=== PATIENT | female | born 1950 | race Caucasian/White ===

== ENCOUNTER 2017-05-22 15:31 | Emergency (ER) | payer MEDICARE, MEDICAID ==
[~2017-05-22] VITALS: Ht 160 cm; Wt 160.0 kg
[~2017-05-22 15:31] MED LIST: ATOR40TA PO; CHRO1TAB7 PO; HYDR-569 PO; LAMO100T65 PO; LEVO137T24 PO; LOSA50TA3 PO; LYSI500T40 PO; MULT-1141 PO; PRAM0.754; PRED20TA PO
[2017-05-22] MEDS ORDERED: ondansetron/PF 4mg/2ml inj IV ONE (16:25)
[2017-05-22] MEDS ORDERED: normal saline 1000ML IV soln IVB ONE (16:25)
[2017-05-22 16:48] LABS: BASOPHILS % (AUTO) 0.2 % (0-1); EOSINOPHILS # (AUTO) 0.3 X10'3 (0-0.9); EOSINOPHILS % (AUTO) 2.6 % (0-6); HEMATOCRIT 41.4 % (35.0-45.0); HEMOGLOBIN 14.6 g/dl (12.0-16.0); LYMPHOCYTES # (AUTO) 1.6 X10'3 (1.1-4.8); LYMPHOCYTES % (AUTO) 14.8 % (21-51); MEAN CORPUSCULAR HEMOGLOBIN 30.9 PG (27.0-31.0); MEAN CORPUSCULAR HGB CONC 35.2 % (33.0-36.5); MEAN CORPUSCULAR VOLUME 87.9 FL (78-98); MEAN PLATELET VOLUME 7.1 FL (7.4-10.4); MONOCYTES # (AUTO) 0.5 X10'3 (0-0.9); MONOCYTES % (AUTO) 4.3 % (2-12); NEUTROPHILS # (AUTO) 8.6 X10'3 (1.8-7.7); NEUTROPHILS % (AUTO) 78.1 % (42-75); PLATELET COUNT 317 X10'3 (140-440); RED BLOOD COUNT 4.71 X10'6 (4.20-5.60); RED CELL DISTRIBUTION WIDTH 13.6 % (11.5-14.5)
[2017-05-22 16:58] LABS: INR 0.9 INR; PARTIAL THROMBOPLASTIN TIME 22 SECONDS (22-32); PROTHROMBIN TIME 9.5 SECONDS (9.0-12.0)
[2017-05-22 17:05] LABS: ALANINE AMINOTRANSFERASE 28 U/L (12-78); ALBUMIN 3.6 G/DL (3.4-5.0); ALBUMIN/GLOBULIN RATIO 0.9 (1.1-1.5); ALKALINE PHOSPHATASE 100 IU/L (46-116); ANION GAP 15 (8-16); ASPARTATE AMINO TRANSFERASE 13 U/L (10-37); BILIRUBIN,TOTAL 0.4 MG/DL (0.1-1.0); BLOOD UREA NITROGEN 16 MG/DL (7-18); BUN/CREATININE RATIO 12.7 (6.6-38.0); CALCIUM 9.4 MG/DL (8.5-10.1); CHLORIDE 96 MMOL/L (99-107); CREATININE 1.26 MG/DL (0.40-0.90); GLUCOSE 238 MG/DL (70-104); POTASSIUM 3.9 MMOL/L (3.5-5.1); SODIUM 135 MMOL/L (135-145); TOTAL CARBON DIOXIDE 24.2 MMOL/L (24-32); TOTAL PROTEIN 7.7 G/DL (6.4-8.2); eGFR 43 ML/MIN
[2017-05-22] MEDS ORDERED: normal saline 1000ml 1,000 ML IV ONE (17:20)
[2017-05-22] MEDS ORDERED: ketorolac trometh. 30mg/ml inj. IV ONE (18:25)
[2017-05-22] MEDS ORDERED: acetaminophen 325mg tablet PO ONE (18:25)
[2017-05-22] MEDS ORDERED: ONDA8TAB9 PO (19:43)
[2017-05-22] MEDS ORDERED: TAM75C PO (19:43)
[2017-05-22] MEDS ORDERED: oseltamivir phos 75mg capsule PO ONE (19:45)
[2017-05-22 20:14] VITALS: BP 136/68
== END 2017-05-22 20:13 | disposition home or self-care (01) ==
LOC: ER 15:31
DX: R11.10 Vomiting, unspecified (principal); J11.1 Influenza due to unidentified influenza virus with other respiratory manifestations; I10 Essential (primary) hypertension; J44.9 Chronic obstructive pulmonary disease, unspecified; E11.9 Type 2 diabetes mellitus without complications; Z88.5 Allergy status to narcotic agent; Z79.899 Other long term (current) drug therapy
CPT/HCPCS: 36415; 71045; 80053; 83605; 84145; 84484; 85025; 85610; 85730; 87040; 93005; 96361; 96374; 96375; 99285; J1885; J2405; J7030

== ENCOUNTER 2019-07-29 06:17 | Day surgery (SDC) | payer MEDICARE, MEDICAID ==
[2019-07-22 13:18] LABS: BASOPHILS # (AUTO) 0.1 X10'3 (0-0.2); BASOPHILS % (AUTO) 0.8 % (0-1); EOSINOPHILS # (AUTO) 0.2 X10'3 (0-0.9); EOSINOPHILS % (AUTO) 2.1 % (0-6); LYMPHOCYTES # (AUTO) 1.4 X10'3 (1.1-4.8); MEAN CORPUSCULAR HEMOGLOBIN 30.7 PG (27.0-31.0); MEAN CORPUSCULAR HGB CONC 34.4 g/dL (33.0-36.5); MEAN CORPUSCULAR VOLUME 89.3 FL (78-98); MONOCYTES # (AUTO) 0.5 X10'3 (0-0.9); MONOCYTES % (AUTO) 6.1 % (2-12); NEUTROPHILS # (AUTO) 5.4 X10'3 (1.8-7.7); PRE OP HEMATOCRIT 36.5 % (35.0-45.0); PRE OP HEMOGLOBIN 12.6 g/dL (12.0-16.0); PRE OP PLATELET COUNT 303 X10'3 (140-440); RED BLOOD COUNT 4.08 X10'6 (4.20-5.60); RED CELL DISTRIBUTION WIDTH 13.3 % (11.5-14.5)
[2019-07-22 13:28] LABS: ALBUMIN 3.4 G/DL (3.4-5.0); ALKALINE PHOSPHATASE 57 IU/L (46-116); BLOOD UREA NITROGEN 24 MG/DL (7-18); BUN/CREATININE RATIO 22.6 (6.6-38.0); CALCIUM 9.1 MG/DL (8.5-10.1); CHLORIDE 102 MMOL/L (99-107); CREATININE 1.06 MG/DL (0.40-0.90); PRE OP ALT 23 U/L (30-65); PRE OP ANION GAP 11 (8-16); PRE OP AST 13 U/L (10-37); PRE OP BILIRUB, TOTAL 0.2 MG/DL (0.0-1.0); PRE OP GLUCOSE 158 MG/DL (70-104); PRE OP POTASSIUM 4.5 MMOL/L (3.4-5.1); PRE OP SODIUM 136 MMOL/L (135-145); TOTAL PROTEIN 6.9 G/DL (6.4-8.2); eGFR 52 ML/MIN
[~2019-07-29] VITALS: Ht 160 cm; Wt 85.3 kg
[~2019-07-29 06:17] MED LIST changes: +ALBU8.5H8 INH; +BUPR150T6 PO; +CARB-126 PO; +CHOL500049 PO; -CHRO1TAB7 PO; +EMPA25TA PO; +FLUT1DIS20 INH; +GLIM4TAB7 PO; +HYDR-4383 PO; -HYDR-569 PO; -LAMO100T65 PO; +LAMO200T10 PO; -LEVO137T24 PO; +LEVO175T2 PO; -LOSA50TA3 PO; +LOSA50TA64 PO; -LYSI500T40 PO; -MULT-1141 PO; +OMEP-50 PO; +ONDA8TAB65 PO; +ONDA8TAB9 PO; +PIOG15TA67 PO; -PRAM0.754; +PRIM250T8 PO; +ROSU40TA22 PO; +SITA1TAB6 PO; +cefazolin/dext.iso 2gm/50ml 50 ML IV ONE; +famotidine 20mg tablet PO ONE; +ringers solution, lacted 1,000 ML IV SCH
[2019-07-29 06:35] VITALS: BP 132/64
[2019-07-29] MEDS ORDERED: BUPIVAcaine/PF 2.5 mg/ml (0.25%) 30ml vial ONE (06:35)
[2019-07-29] MEDS ORDERED: ringers solution, lacted 1,000 ML IV SCH (07:19)
[2019-07-29] MEDS ORDERED: proCHLORperazine 10 MG/2 ml inj IV PRN (07:20)
[2019-07-29] MEDS ORDERED: morphine 4 MG/ML inj SYRINge IV PRN (07:20)
[2019-07-29] MEDS ORDERED: meperidine/PF 25mg/ml syringe IV PRN ×3 (07:20)
[2019-07-29] MEDS ORDERED: morphine 2 MG/ML inj. syringe IV PRN (07:20)
[2019-07-29] MEDS ORDERED: ondansetron/PF 4mg/2ml inj IV PRN (07:20)
[2019-07-29] MEDS ORDERED: LIDOcaine 1% 30ml preserv. free vial ONE (07:23)
[2019-07-29] MEDS ORDERED: fentaNYL/PF 50MCG/1 ML 2ML syringe ONE (09:28)
[2019-07-29] MEDS ORDERED: MIDAZolam 5mg/5ml vial ONE (09:28)
[2019-07-29] MEDS ORDERED: 0.9 % SODIUM CHLORIDE 10 ML VIAL ONE (09:30)
[2019-07-29] MEDS ORDERED: ketorolac trometh. 30mg/ml inj. ONE (09:30)
[2019-07-29 10:09] VITALS: BP 166/74
--- NOTE | 2019-07-29 10:09 | NUR ---
Received from OR via , accompanied by Anesthesiologist DR SANCHEZ and report given by Anesthesiolgist. AWAKE AND ORIENTED. VITALS STABLE. DRESSING DI. MARVIN PAIN.
[2019-07-29 10:19] VITALS: BP 143/59
[2019-07-29 10:29] VITALS: BP 154/66
[2019-07-29 10:39] VITALS: BP 137/58
[2019-07-29 10:49] VITALS: BP 144/62
--- NOTE | 2019-07-29 11:09 | NUR ---
AWAKE AND ORIENTED. VITALS STABLE. DRESSING DI. MARVIN PAIN. HOME WITH A FRIEND AT THIS TIME.
== END 2019-07-29 11:09 | disposition home or self-care (01) ==
LOC: PAS 06:17
PROVIDERS: ATTEND Orthopaedic Surgery Hand Surgery
DX: M65.332 Trigger finger, left middle finger (principal); E78.5 Hyperlipidemia, unspecified; E03.9 Hypothyroidism, unspecified; J44.9 Chronic obstructive pulmonary disease, unspecified; G20 Parkinson's disease; F32.9 Major depressive disorder, single episode, unspecified; E11.22 Type 2 diabetes mellitus with diabetic chronic kidney disease; I12.9 Hypertensive chronic kidney disease with stage 1 through stage 4 chronic kidney disease, or unspecified chronic kidney disease; N18.3 Chronic kidney disease, stage 3 (moderate); K21.9 Gastro-esophageal reflux disease without esophagitis; E66.9 Obesity, unspecified; Z68.33 Body mass index [BMI] 33.0-33.9, adult; Z72.89 Other problems related to lifestyle; F12.90 Cannabis use, unspecified, uncomplicated; Z88.5 Allergy status to narcotic agent; Z11.59 Encounter for screening for other viral diseases; Z98.890 Other specified postprocedural states; Z90.710 Acquired absence of both cervix and uterus; Z79.899 Other long term (current) drug therapy; Z79.84 Long term (current) use of oral hypoglycemic drugs
CPT/HCPCS: 26055; 36415; 80053; 82948; 85025; 93005; A6222; J1885; J2001; J2250; J3010; J3490; U0003; A4215; A4615; A6449; J7120

== ENCOUNTER 2022-09-26 15:11 | Inpatient (IN) | payer MEDICARE, MEDICAID ==
[~2022-09-26] VITALS: Ht 160 cm; Wt 85.0 kg
[~2022-09-26 15:11] MED LIST changes: +ALBU8.5H17 INH; -ALBU8.5H8 INH; -ATOR40TA PO; +BUPR-317 PO; -BUPR150T6 PO; +CARB1TAB36 PO; -FLUT1DIS20 INH; -GLIM4TAB7 PO; -HYDR-4383 PO; -LEVO175T2 PO; -OMEP-50 PO; +OMEP20CA16 PO; -ONDA8TAB65 PO; -ONDA8TAB9 PO; -PRED20TA PO; -ROSU40TA22 PO; -SITA1TAB6 PO; -cefazolin/dext.iso 2gm/50ml 50 ML IV ONE; -famotidine 20mg tablet PO ONE; -ringers solution, lacted 1,000 ML IV SCH
[2022-09-26 15:41] LABS: BASOPHILS % (AUTO) 0.5 % (0-1); EOSINOPHILS # (AUTO) 0.1 X10'3 (0-0.9); EOSINOPHILS % (AUTO) 2.2 % (0-6); HEMATOCRIT 33.6 % (35.0-45.0); HEMOGLOBIN 11.7 g/dl (12.0-16.0); LYMPHOCYTES # (AUTO) 1.4 X10'3 (1.1-4.8); LYMPHOCYTES % (AUTO) 20.4 % (21-51); MEAN CORPUSCULAR HEMOGLOBIN 31.9 PG (27.0-31.0); MEAN CORPUSCULAR HGB CONC 34.7 g/dL (33.0-36.5); MEAN CORPUSCULAR VOLUME 91.9 FL (78-98); MEAN PLATELET VOLUME 7.3 FL (7.4-10.4); MONOCYTES # (AUTO) 0.5 X10'3 (0-0.9); MONOCYTES % (AUTO) 6.8 % (2-12); NEUTROPHILS # (AUTO) 4.9 X10'3 (1.8-7.7); NEUTROPHILS % (AUTO) 70.1 % (42-75); PLATELET COUNT 251 X10'3 (140-440); RED BLOOD COUNT 3.66 X10'6 (4.20-5.60); RED CELL DISTRIBUTION WIDTH 13.3 % (11.5-14.5); WHITE BLOOD COUNT 6.9 X10'3 (4.5-11.0)
[2022-09-26 16:00] LABS: ALANINE AMINOTRANSFERASE 10 U/L (12-78); ALBUMIN 3.1 G/DL (3.4-5.0); ALBUMIN/GLOBULIN RATIO 0.9 (1.1-1.5); ALKALINE PHOSPHATASE 116 IU/L (46-116); ANION GAP 8 (8-16); ASPARTATE AMINO TRANSFERASE 17 U/L (10-37); BILIRUBIN,TOTAL 0.3 MG/DL (0.1-1.0); BLOOD UREA NITROGEN 20 MG/DL (7-18); BUN/CREATININE RATIO 21.7 (10.0-20.0); CHLORIDE 101 MMOL/L (99-107); CREATININE 0.92 MG/DL (0.40-0.90); GLUCOSE 110 MG/DL (70-104); POTASSIUM 4.1 MMOL/L (3.5-5.1); SODIUM 134 MMOL/L (135-145); TOTAL CARBON DIOXIDE 24.8 MMOL/L (24-32); TOTAL PROTEIN 6.5 G/DL (6.4-8.2); eCRCL 47 ML/MIN; eGFR 60 ML/MIN
[2022-09-26 16:09] LABS: PRO BRAIN NATRIURETIC PEPTIDE 279 PG/ML (0-125)
[2022-09-26 18:50] LABS: BILIRUBIN,URINE NEGATIVE (Neg); CLARITY,URINE CLEAR (Clear); COLOR,URINE YELLOW (Yellow); GLUCOSE, URINE >=1000 mg/dl (Neg); KETONES,URINE NEGATIVE (Neg); LEUKOCYTE ESTERASE ,URINE NEGATIVE (Neg); NITRITES, URINE NEGATIVE (Neg); OCCULT BLOOD,URINE NEGATIVE (Neg); PROTEIN,URINE NEGATIVE (Neg); UROBILINOGEN,URINE 0.2 E.U/dL (0.2-1.0)
[2022-09-26 19:15] LABS: UA COLLECTION TYPE STRAIGHT CATH
[2022-09-26 19:17] LABS: RBC,URINE 0-2 /HPF (0-2); SQUAMOUS EPITHELIAL CELL,UR FEW /LPF (FEW); WBC,URINE 0-4 /HPF (0-4)
[2022-09-26 19:18] LABS: BACTERIA,URINE FEW /HPF (Neg)
[2022-09-26] MEDS ORDERED: potassium Cl 20 mEq SR tablet PO PRN ×2 (19:50)
[2022-09-26] MEDS ORDERED: magnesium hydroxide 30ml (MOM) UD suspension PO PRN (19:50)
[2022-09-26] MEDS ORDERED: potassium Cl 40MEQ/1/2NS 520ml 520 ML IV PRN (19:50)
[2022-09-26] MEDS ORDERED: magnesium 2GM in 50ml NS 50 ML IV PRN (19:50)
[2022-09-26] MEDS ORDERED: mag hydrox/Alum hydrox/simeth 30ml oral suspension PO PRN (19:50)
[2022-09-26] MEDS ORDERED: magnesium Cl slow-release 64mg tablet PO PRN (19:50)
[2022-09-26] MEDS ORDERED: ondansetron/PF 4mg/2ml inj IV PRN (19:50)
[2022-09-26] MEDS ORDERED: magnesium 4gm in 100ml NS 100 ML IV PRN (19:50)
[2022-09-26] MEDS ORDERED: HYDROcodone/acetaminophen 5mg/325mg tablet PO PRN (19:50)
[2022-09-26] MEDS ORDERED: acetaminophen 325mg tablet PO PRN (19:50)
[2022-09-26] MEDS ORDERED: normal saline 1000ML IV soln IVB ONE (19:55)
[2022-09-26] MEDS: K and/or MAG REPLACEMENT MC SCH (20:00)
[2022-09-26] MEDS: docusate sod 100mg capsule PO SCH (20:55)
[2022-09-26] MEDS: potassium cl 20mEq in 1/2 NS 1,000 ML IV SCH (21:08)
[2022-09-27] VITALS (7 sets, daily range): BP systolic 102–118; BP diastolic 32–50; PULSE 68–76; RESP 16–20; TEMP 96.7–98.6; O2SAT 94–100
[2022-09-27] MEDS ORDERED: CARB1TAB41 PO (01:15)
--- NOTE | 2022-09-27 01:22 | NUR ---
PER DR SANJUANITA PAUL TO GIVE PT HER CARVIDOPA LEVIDOPA ER AND INSTANT RELEASE NOW
--- NOTE | 2022-09-27 01:26 | NUR ---
PER PT SHE TAKES 2 ER CARVIDOPA LEVIDOPA TID AND ONE IR CARVIDOPA LEVIDOPA TID
[2022-09-27] MEDS: carbidoba-levodopa 25-100mg tablet PO SCH ×4 (01:47→20:35)
[2022-09-27] MEDS: carbidopa/levodopa 25/100mg CR tablet PO SCH ×4 (01:47→20:35)
--- NOTE | 2022-09-27 02:39 | NUR ---
PT PLACED ON A HOSPITAL BED
[2022-09-27] MEDS: HYDROcodone/acetaminophen 10/325mg tab PO PRN ×3 (04:55→17:21)
[2022-09-27] MEDS: potassium cl 20mEq in 1/2 NS 1,000 ML IV SCH ×3 (05:50→17:14)
[2022-09-27] MEDS ORDERED: MESSAGE TO PHARMACY PO ONE (06:50)
[2022-09-27] MEDS ORDERED: dextrose 50%-water 50ml dispensing syringe IV PRN ×2 (06:50)
[2022-09-27] MEDS ORDERED: insulin Lispro (HumaLOG) vial - multi-dose SQ SCH (06:50)
[2022-09-27] MEDS ORDERED: DEXTROSE 15 GM of carb/4 tabs (each vial/BOTTLE has 4 tablets) PO PRN ×2 (06:50)
[2022-09-27] MEDS ORDERED: glucagon, human recombinant 1mg kit SUBCUT PRN (06:50)
[2022-09-27] MEDS ORDERED: albuterol 2.5 MG/3 ML nebule NEB PRN (07:35)
[2022-09-27] MEDS: docusate sod 100mg capsule PO SCH ×2 (08:00→19:02)
[2022-09-27] MEDS: K and/or MAG REPLACEMENT MC SCH ×2 (08:00→19:51)
[2022-09-27] MEDS ORDERED: carbidopa/levodopa 25/100mg CR tablet PO SCH (08:00)
[2022-09-27] MEDS ORDERED: carbidoba-levodopa 25-100mg tablet PO SCH (08:00)
[2022-09-27] MEDS: lamoTRIgine 100mg tablet PO SCH (08:10)
[2022-09-27] MEDS: buPROPion SR 150mg tablet PO SCH ×2 (08:11→19:02)
[2022-09-27] MEDS: losartan 50mg tablet PO SCH (08:11)
[2022-09-27] MEDS: enoxaparin 40mg/0.4ml syringe SUBCUT SCH (08:13)
[2022-09-27 08:49] LABS: BASOPHILS % (AUTO) 0.3 % (0-1); EOSINOPHILS # (AUTO) 0.2 X10'3 (0-0.9); HEMATOCRIT 37.7 % (35.0-45.0); HEMOGLOBIN 12.9 g/dl (12.0-16.0); LYMPHOCYTES % (AUTO) 25.5 % (21-51); MEAN CORPUSCULAR HEMOGLOBIN 31.7 PG (27.0-31.0); MEAN CORPUSCULAR HGB CONC 34.2 g/dL (33.0-36.5); MEAN CORPUSCULAR VOLUME 92.8 FL (78-98); MEAN PLATELET VOLUME 7.5 FL (7.4-10.4); MONOCYTES # (AUTO) 0.6 X10'3 (0-0.9); MONOCYTES % (AUTO) 7.6 % (2-12); NEUTROPHILS % (AUTO) 64.6 % (42-75); PLATELET COUNT 248 X10'3 (140-440); RED BLOOD COUNT 4.06 X10'6 (4.20-5.60); RED CELL DISTRIBUTION WIDTH 13.2 % (11.5-14.5); WHITE BLOOD COUNT 7.7 X10'3 (4.5-11.0)
[2022-09-27 09:23] LABS: ALANINE AMINOTRANSFERASE 12 U/L (12-78); ALBUMIN 3.3 G/DL (3.4-5.0); ALKALINE PHOSPHATASE 120 IU/L (46-116); ANION GAP 9 (8-16); ASPARTATE AMINO TRANSFERASE 20 U/L (10-37); BILIRUBIN,TOTAL 0.2 MG/DL (0.1-1.0); BLOOD UREA NITROGEN 17 MG/DL (7-18); CALCIUM 8.7 MG/DL (8.5-10.1); CHLORIDE 98 MMOL/L (99-107); CREATININE 0.81 MG/DL (0.40-0.90); GLUCOSE 95 MG/DL (70-104); MAGNESIUM 1.6 MG/DL (1.5-2.4); POTASSIUM 3.9 MMOL/L (3.5-5.1); SODIUM 132 MMOL/L (135-145); TOTAL CARBON DIOXIDE 24.9 MMOL/L (24-32); TOTAL PROTEIN 6.7 G/DL (6.4-8.2); eCRCL 53 ML/MIN; eGFR 70 ML/MIN
[2022-09-27] MEDS: normal saline 1000ml 1,000 ML IV SCH (18:05)
[2022-09-27] MEDS: primidone 250mg tablet PO SCH (19:03)
[2022-09-27] MEDS: nystatin 15 GM powder TP SCH (20:36)
[2022-09-27] MEDS: insulin glargine (Lantus) pen - multi-dose SQ SCH (21:00)
--- NOTE | 2022-09-28 03:00 | NUR ---
Patient in room [facility]TH[facility] 4021. I have received report from PANCHO FAUSTIN and had the opportunity to ask questions and assume patient care.
[2022-09-28 06:11] LABS: ALANINE AMINOTRANSFERASE 11 U/L (12-78); ALBUMIN/GLOBULIN RATIO 0.9 (1.1-1.5); ALKALINE PHOSPHATASE 114 IU/L (46-116); ANION GAP 8 (8-16); ASPARTATE AMINO TRANSFERASE 13 U/L (10-37); BILIRUBIN,TOTAL 0.2 MG/DL (0.1-1.0); BLOOD UREA NITROGEN 21 MG/DL (7-18); BUN/CREATININE RATIO 24.4 (10.0-20.0); CALCIUM 8.7 MG/DL (8.5-10.1); CHLORIDE 100 MMOL/L (99-107); CREATININE 0.86 MG/DL (0.40-0.90); GLUCOSE 98 MG/DL (70-104); MAGNESIUM 1.7 MG/DL (1.5-2.4); POTASSIUM 4.2 MMOL/L (3.5-5.1); SODIUM 133 MMOL/L (135-145); TOTAL CARBON DIOXIDE 25.4 MMOL/L (24-32); TOTAL PROTEIN 6.3 G/DL (6.4-8.2); eCRCL 50 ML/MIN; eGFR 65 ML/MIN
[2022-09-28 06:19] LABS: BASOPHILS % (AUTO) 0.2 % (0-1); EOSINOPHILS # (AUTO) 0.2 X10'3 (0-0.9); EOSINOPHILS % (AUTO) 1.8 % (0-6); HEMATOCRIT 35.6 % (35.0-45.0); HEMOGLOBIN 12.4 g/dl (12.0-16.0); LYMPHOCYTES # (AUTO) 1.6 X10'3 (1.1-4.8); LYMPHOCYTES % (AUTO) 18.2 % (21-51); MEAN CORPUSCULAR HEMOGLOBIN 32.4 PG (27.0-31.0); MEAN CORPUSCULAR HGB CONC 34.9 g/dL (33.0-36.5); MEAN PLATELET VOLUME 7.9 FL (7.4-10.4); MONOCYTES # (AUTO) 0.5 X10'3 (0-0.9); MONOCYTES % (AUTO) 5.8 % (2-12); NEUTROPHILS # (AUTO) 6.6 X10'3 (1.8-7.7); PLATELET COUNT 220 X10'3 (140-440); RED BLOOD COUNT 3.83 X10'6 (4.20-5.60); RED CELL DISTRIBUTION WIDTH 13.8 % (11.5-14.5); WHITE BLOOD COUNT 8.9 X10'3 (4.5-11.0)
[2022-09-28 06:33] VITALS: BP 142/53; PULSE 66; RESP 16; TEMP 97.6; O2SAT 98
--- NOTE | 2022-09-28 07:00 | NUR ---
Problems reprioritized. Patient report given, questions answered & plan of care reviewed with PANCHO Moya.
[2022-09-28] MEDS: nystatin 15 GM powder TP SCH ×3 (08:00→21:00)
[2022-09-28] MEDS: K and/or MAG REPLACEMENT MC SCH ×2 (08:00→20:00)
[2022-09-28] MEDS: buPROPion SR 150mg tablet PO SCH ×2 (09:19→20:09)
[2022-09-28] MEDS: lamoTRIgine 100mg tablet PO SCH (09:20)
[2022-09-28] MEDS: carbidoba-levodopa 25-100mg tablet PO SCH ×3 (09:20→21:02)
[2022-09-28] MEDS: docusate sod 100mg capsule PO SCH ×2 (09:20→20:09)
[2022-09-28] MEDS: enoxaparin 40mg/0.4ml syringe SUBCUT SCH (09:21)
[2022-09-28] MEDS: losartan 50mg tablet PO SCH (09:21)
[2022-09-28] MEDS: primidone 250mg tablet PO SCH ×2 (09:23→20:10)
[2022-09-28] MEDS: carbidopa/levodopa 25/100mg CR tablet PO SCH ×3 (09:24→21:02)
[2022-09-28 10:00] VITALS: BP 132/50; PULSE 74; RESP 14; TEMP 98.1; O2SAT 99
[2022-09-28] MEDS: potassium cl 20mEq in 1/2 NS 1,000 ML IV SCH (12:28)
[2022-09-28] MEDS: HYDROcodone/acetaminophen 10/325mg tab PO PRN (12:37)
[2022-09-28] MEDS: normal saline 1000ml 1,000 ML IV SCH ×2 (14:05→19:37)
--- NOTE | 2022-09-28 18:28 | NUR ---
patient worked with PT able to ambulate to doorway, see note. All cares given. Report given to [place] DELEON
[2022-09-28 18:30] VITALS: BP 160/51; PULSE 89; RESP 13; TEMP 98.1; O2SAT 97
[2022-09-28 18:50] VITALS: RESP 16; O2SAT 100
[2022-09-28] MEDS: ketoconazole 2% cream 15gm TP SCH (19:35)
[2022-09-28] MEDS: insulin glargine (Lantus) pen - multi-dose SQ SCH (21:00)
[2022-09-28 22:00] VITALS: BP 143/51; PULSE 79; RESP 16; TEMP 98.2; O2SAT 100
[2022-09-28 22:38] VITALS: PULSE 90; RESP 16; O2SAT 97
[2022-09-29 06:05] LABS: BASOPHILS % (AUTO) 0.4 % (0-1); EOSINOPHILS # (AUTO) 0.2 X10'3 (0-0.9); HEMATOCRIT 32.5 % (35.0-45.0); HEMOGLOBIN 11.4 g/dl (12.0-16.0); LYMPHOCYTES # (AUTO) 1.4 X10'3 (1.1-4.8); MEAN CORPUSCULAR HEMOGLOBIN 32.3 PG (27.0-31.0); MEAN CORPUSCULAR HGB CONC 35.1 g/dL (33.0-36.5); MEAN PLATELET VOLUME 7.5 FL (7.4-10.4); MONOCYTES # (AUTO) 0.5 X10'3 (0-0.9); NEUTROPHILS # (AUTO) 6.1 X10'3 (1.8-7.7); NEUTROPHILS % (AUTO) 74.6 % (42-75); PLATELET COUNT 204 X10'3 (140-440); RED BLOOD COUNT 3.54 X10'6 (4.20-5.60); RED CELL DISTRIBUTION WIDTH 13.6 % (11.5-14.5); WHITE BLOOD COUNT 8.1 X10'3 (4.5-11.0)
[2022-09-29 06:21] LABS: ALANINE AMINOTRANSFERASE 8 U/L (12-78); ALBUMIN 2.7 G/DL (3.4-5.0); ALBUMIN/GLOBULIN RATIO 0.8 (1.1-1.5); ALKALINE PHOSPHATASE 109 IU/L (46-116); ANION GAP 8 (8-16); ASPARTATE AMINO TRANSFERASE 13 U/L (10-37); BILIRUBIN,TOTAL 0.3 MG/DL (0.1-1.0); BLOOD UREA NITROGEN 25 MG/DL (7-18); BUN/CREATININE RATIO 30.1 (10.0-20.0); CALCIUM 8.6 MG/DL (8.5-10.1); CHLORIDE 100 MMOL/L (99-107); CREATININE 0.83 MG/DL (0.40-0.90); GLUCOSE 113 MG/DL (70-104); MAGNESIUM 1.6 MG/DL (1.5-2.4); POTASSIUM 3.9 MMOL/L (3.5-5.1); SODIUM 132 MMOL/L (135-145); eCRCL 52 ML/MIN; eGFR 68 ML/MIN
--- NOTE | 2022-09-29 06:30 | NUR ---
Problems reprioritized. Patient report given, questions answered & plan of care reviewed with Addendum: 09/29/22 at 0644 by Bernabe Thomas RN Amended: Links added.
--- NOTE | 2022-09-29 06:47 | NUR ---
Patient in room ORTHO 4021. I have received report from MARC DELEON and had the opportunity to ask questions and assume patient care.
[2022-09-29] MEDS: enoxaparin 40mg/0.4ml syringe SUBCUT SCH (07:16)
[2022-09-29] MEDS: carbidopa/levodopa 25/100mg CR tablet PO SCH (07:16)
[2022-09-29] MEDS: lamoTRIgine 100mg tablet PO SCH (07:17)
[2022-09-29] MEDS: carbidoba-levodopa 25-100mg tablet PO SCH ×2 (07:17→13:18)
[2022-09-29] MEDS: buPROPion SR 150mg tablet PO SCH (07:17)
[2022-09-29] MEDS: docusate sod 100mg capsule PO SCH (07:17)
[2022-09-29] MEDS: primidone 250mg tablet PO SCH (07:18)
[2022-09-29] MEDS: ketoconazole 2% cream 15gm TP SCH (07:18)
[2022-09-29] MEDS: losartan 50mg tablet PO SCH (07:18)
[2022-09-29] MEDS: normal saline 1000ml 1,000 ML IV SCH (07:20)
[2022-09-29] MEDS: nystatin 15 GM powder TP SCH ×2 (07:30→13:18)
[2022-09-29] MEDS: K and/or MAG REPLACEMENT MC SCH (08:00)
[2022-09-29 08:38] VITALS: PULSE 90; RESP 16; O2SAT 97
[2022-09-29 08:39] VITALS: BP 126/45; PULSE 73; RESP 16; TEMP 97.8; O2SAT 98
[2022-09-29] MEDS ORDERED: carbidopa/levodopa 50/200mg CR tablet PO SCH (09:50)
[2022-09-29 10:31] VITALS: RESP 16; O2SAT 98
[2022-09-29 11:52] VITALS: BP 113/49; PULSE 85; RESP 16; TEMP 97.5; O2SAT 98
--- NOTE | 2022-09-29 14:11 | NUR ---
PRESSURE ULCER EDUCATION: DEFINITION: A pressure ulcer is an area of skin that breaks down when you stay in one position too long. The constant pressure against the skin reduces the blood flow to that area and the affected tissue dies. CAUSES: "Being bedridden or in a wheelchair "Fragile skin "Having a chronic condition, such as diabetes or vascular disease "Inability to move certain parts of your body without assistance "Older age "Incontinence of urine or stool SYMPTOMS: "A reddened area that DOES NOT turn white when pressed on - this can be the beginning of a pressure ulcer "A blister, deep sore or a crater - these can be advanced pressure ulcers FIRST AID: "Relieve the pressure on this area "Keep the area clean and dry "Call your primary doctor if you see any of the above symptoms "DO NOT massage the area "DO NOT use a donut shaped or ring shaped pillow- these actually interfere with the blood flow and cause complications PREVENTION: "Check for pressure ulcers everyday "Change position at least every two hours to relieve pressure "Use items that help relieve pressure- pillows, sheepskin, foam padding, and powders. "Keep skin clean and dry "Eat healthy well balanced meals "Exercise daily IF YOU SEE ANY OF THESE SYMPTOMS WHILE IN THE HOSPITAL - TELL YOUR NURSE IMMEDIATELY. IF YOU SEE ANY OF THESE SYMPTOMS WHILE AT HOME OR HAVE ANY QUESTIONS OR CONCERNS ABOUT PRESSURE ULCERS - CALL YOUR PRIMARY DOCTOR IMMEDIATELY. Addendum: 09/29/22 at 1411 by Sedrick Mejia RN Amended: Links added.
--- NOTE | 2022-09-29 16:26 | NUR ---
PT. SAFELY LEFT WITH LILIAN CARGO TO ,[facility]. PT. STABLE AND ALERT UPON DISCHARGE. PT. IV CANNULA WHOLE AND INTACT UPON REMOVAL. PT. REPORT GIVEN TO [facility] BEFORE DISCHARGE. PT. LEFT WITH ALL BELONGINGS.
== END 2022-09-29 16:20 | DRG 641 ==
LOC: ER 15:12 → ED HOLD 19:56 → ORTHO 4S 09-27 07:15
PROVIDERS: ADMIT Internal Medicine; ATTEND Family Medicine
DX: E87.1 Hypo-osmolality and hyponatremia (principal); E86.0 Dehydration; G20 Parkinson's disease; E78.00 Pure hypercholesterolemia, unspecified; E11.9 Type 2 diabetes mellitus without complications; I10 Essential (primary) hypertension; E66.01 Morbid (severe) obesity due to excess calories; F32.A Depression, unspecified; Z60.2 Problems related to living alone; L21.9 Seborrheic dermatitis, unspecified; W18.39XA Other fall on same level, initial encounter; F41.9 Anxiety disorder, unspecified; J44.9 Chronic obstructive pulmonary disease, unspecified; Y93.01 Activity, walking, marching and hiking; Z82.49 Family history of ischemic heart disease and other diseases of the circulatory system; Z82.5 Family history of asthma and other chronic lower respiratory diseases; Z83.3 Family history of diabetes mellitus; Z90.710 Acquired absence of both cervix and uterus; Z68.33 Body mass index [BMI] 33.0-33.9, adult; Y92.89 Other specified places as the place of occurrence of the external cause; Y99.8 Other external cause status; Z88.5 Allergy status to narcotic agent; Z79.899 Other long term (current) drug therapy
CPT/HCPCS: 36415; 71045; 80053; 81001; 82948; 83036; 83735; 83880; 84484; 85025; 87077; 87081; 87088; 87186; 93005; 93306; 94760; 96365; 97110; 97161; 97530; 99285; G0378; J1650; J1815; J3480; J7030

== ENCOUNTER 2023-10-08 08:44 | Emergency (ER) | payer MEDICARE, MEDICAID ==
[~2023-10-08] VITALS: Ht 157.5 cm; Wt 89.8 kg
[~2023-10-08 08:44] MED LIST changes: -BUPR-317 PO; +BUPR-561 PO; -CARB-126 PO; +CARB1TAB41 PO; -CHOL500049 PO; +CYAN-34 PO; +GLIM4TAB7 PO; +LEVO175T2 PO; +METF-1203 PO; -OMEP20CA16 PO; +PROP60TA19 PO; +ROSU40TA PO; +TRAM50TA2 PO; +VENL37.59 PO
[2023-10-08] MEDS: methylPREDNISolone sod succ 125mg/2ml vial IV ONE (09:07)
[2023-10-08 09:08] LABS: BASOPHILS # (AUTO) 0.1 X10'3 (0-0.2); BASOPHILS % (AUTO) 0.5 % (0-1); EOSINOPHILS # (AUTO) 0.3 X10'3 (0-0.9); HEMATOCRIT 35.4 % (35.0-45.0); HEMOGLOBIN 12.3 g/dl (12.0-16.0); LYMPHOCYTES # (AUTO) 1.9 X10'3 (1.1-4.8); LYMPHOCYTES % (AUTO) 14.3 % (21-51); MEAN CORPUSCULAR HEMOGLOBIN 32.4 PG (27.0-31.0); MEAN CORPUSCULAR HGB CONC 34.6 g/dL (33.0-36.5); MEAN CORPUSCULAR VOLUME 93.6 FL (78-98); MEAN PLATELET VOLUME 7.7 FL (7.4-10.4); MONOCYTES # (AUTO) 0.6 X10'3 (0-0.9); MONOCYTES % (AUTO) 4.6 % (2-12); NEUTROPHILS # (AUTO) 10.5 X10'3 (1.8-7.7); NEUTROPHILS % (AUTO) 78.6 % (42-75); PLATELET COUNT 421 X10'3 (140-440); RED BLOOD COUNT 3.78 X10'6 (4.20-5.60); RED CELL DISTRIBUTION WIDTH 14.2 % (11.5-14.5); WHITE BLOOD COUNT 13.3 X10'3 (4.5-11.0)
[2023-10-08] MEDS: ipratropium/albuterol 3ml nebule NEB ONE (09:14)
[2023-10-08 09:17] VITALS: PULSE 97; RESP 28; O2SAT 99
[2023-10-08 09:22] VITALS: PULSE 91; O2SAT 95
[2023-10-08 09:29] VITALS: TEMP 97.7
[2023-10-08 09:33] LABS: ALBUMIN 2.8 G/DL (3.4-5.0); ANION GAP 10 (8-16); BLOOD UREA NITROGEN 27 MG/DL (7-18); BUN/CREATININE RATIO 29.3 (10.0-20.0); CALCIUM 9.3 MG/DL (8.5-10.1); CHLORIDE 98 MMOL/L (99-107); CREATININE 0.92 MG/DL (0.40-0.90); GLUCOSE 184 MG/DL (70-104); POTASSIUM 4.2 MMOL/L (3.5-5.1); PRO BRAIN NATRIURETIC PEPTIDE 757 PG/ML (0-125); SODIUM 132 MMOL/L (135-145); TOTAL CARBON DIOXIDE 23.9 MMOL/L (24-32); eCRCL 44 ML/MIN; eGFR 60 ML/MIN
[2023-10-08] MEDS: piperacillin/tazo 3.375gm/50ml 50 ML IV SCH (09:55)
--- NOTE | 2023-10-08 10:35 | NUR ---
pt sleeping quietly at this time. no acute distress noted.
--- NOTE | 2023-10-08 12:47 | NUR ---
PATIENT IS READY FOR DISCHARGE. SPOKE WITH . ARRANGING LILIAN CARGO FOR PATIENT TRANSPORT
--- NOTE | 2023-10-08 12:53 | NUR ---
PATIENT WILL BE TRANSPORTED BY LILIAN CARGO AT 1500
--- NOTE | 2023-10-08 14:27 | NUR ---
Changed patients linens and gown.
[2023-10-08 15:44] VITALS: BP 110/67; PULSE 71; RESP 24; O2SAT 94
== END 2023-10-08 18:26 | disposition home or self-care (01) ==
LOC: ER 08:45
DX: J40 Bronchitis, not specified as acute or chronic (principal); I10 Essential (primary) hypertension; J44.9 Chronic obstructive pulmonary disease, unspecified; E11.9 Type 2 diabetes mellitus without complications; E03.9 Hypothyroidism, unspecified; F41.9 Anxiety disorder, unspecified; F32.A Depression, unspecified; Z88.5 Allergy status to narcotic agent; Z79.899 Other long term (current) drug therapy; Z79.84 Long term (current) use of oral hypoglycemic drugs; Z90.710 Acquired absence of both cervix and uterus
CPT/HCPCS: 36415; 71045; 80048; 83605; 83880; 84145; 84484; 85025; 87040; 93005; 94640; 96365; 96366; 96375; 99285; A4615; J2543; J2919; Z7610; 94760

== ENCOUNTER 2023-12-02 14:42 | Emergency (ER) | payer MEDICARE, MEDICAID ==
[~2023-12-02] VITALS: Ht 160 cm; Wt 84.1 kg
[2023-12-02] MEDS: ketorolac trometh 15mg/ml vial 15 MG/ML ML IM ONE (16:36)
[2023-12-02 16:46] VITALS: BP 134/88; PULSE 80; RESP 18; TEMP 98.8; O2SAT 97
== END 2023-12-02 16:48 | disposition home or self-care (01) ==
LOC: ER 14:43
DX: M25.562 Pain in left knee (principal); I10 Essential (primary) hypertension; G20.A1 Parkinson's disease without dyskinesia, without mention of fluctuations; E11.9 Type 2 diabetes mellitus without complications; E03.9 Hypothyroidism, unspecified; J44.89 Other specified chronic obstructive pulmonary disease; Z88.5 Allergy status to narcotic agent; Z79.899 Other long term (current) drug therapy; Z90.710 Acquired absence of both cervix and uterus; Z95.1 Presence of aortocoronary bypass graft
CPT/HCPCS: 73564; 96372; 99284; J1885

== ENCOUNTER 2024-03-04 11:18 | Outpatient (CLI) | payer MEDICARE, MEDICAID | END 2024-03-04 23:59 | disposition home or self-care (01) | LOC: RAD 11:18 | PROVIDERS: ATTEND Student in an Organized Health Care Education/Training Program | DX: R13.12 Dysphagia, oropharyngeal phase (principal); J69.0 Pneumonitis due to inhalation of food and vomit | CPT/HCPCS: 74230 ==

== ENCOUNTER 2024-12-26 16:26 | Emergency (ER) | payer MEDICARE, MEDICAID ==
[~2024-12-26] VITALS: Ht 157.5 cm; Wt 86.0 kg
[~2024-12-26 16:26] MED LIST changes: -BUPR-561 PO; -CARB1TAB36 PO; -LAMO200T10 PO; -METF-1203 PO; +METF-516 PO; -PIOG15TA67 PO; -PROP60TA19 PO; -ROSU40TA PO; +SEMA2PEN SQ; -TRAM50TA2 PO
[2024-12-26 16:29] VITALS: TEMP 97.8
--- NOTE | 2024-12-26 16:33 | Physician Documentation ---
History of Present Illness General Stated Complaint: HYPERGLYCEMIA Time Seen by MD: 16:33 Primary Medical Doctor: Angie Donahue History of Present Illness Initial Comments 74-year-old female with a history of diabetes was transferred to the emergency room when her caregiver found her blood sugar in the high 400s. The patient was recently at [facility] and was discharged without any medication for diabetes. The patient states she has been out of her diabetes medicine since [facility]. The patient has no complaints at this time. She does have a history of COPD as well as a parkinsonism. Medication Reconciliation Allergies: Coded Allergies: codeine (Verified Allergy, Unknown, 04/24/24) Scheduled Carbidopa/Levodopa (Carbidopa-Levo ER 25-100 Tab), 2 TAB PO TID, (Reported) Cyanocobalamin (Vitamin B-12) (Vitamin B-12), 1 CAP PO DAILY, (Reported) Empagliflozin (Jardiance), 1 TAB PO QAM Glimepiride* (Amaryl*), 6 MG PO DAILY, (Reported) Levothyroxine* (Synthroid*), 1 TAB PO DAILY, (Reported) Losartan Potassium (Losartan Potassium), 1 TAB PO QAM, (Reported) Metformin HCl (Metformin HCl ER), 1 TAB PO WS, (Reported) Metformin Hcl* (Metformin ER*), 1 TAB PO Q12H Primidone (MYSOLINE tablet), 0.5 TAB PO QPM, (Reported) Primidone (MYSOLINE tablet), 1 TAB PO QAM, (Reported) Semaglutide (Ozempic), 2 MG SQ Q7D Venlafaxine Hcl XR* (Effexor XR*), 1 CAP PO DAILY, (Reported) Scheduled PRN Albuterol Sulfate (Proair Hfa), 1-2 PUFF INH Q4H PRN for SOB or wheezing, (Re ported) Past Medical History Past Medical History: Parkinson's Disease, Hypertension, Asthma, COPD, *GI/HEPATOBILIARY*, Diabetes, Hypothyroidism, Anxiety, Depression Past Surgical History: hysterectomy, other Smoking: Quit less than 1 year Alcohol Use: None Drug Use: marijuana Lives with: Alone, Other Lives In: Home Review of Systems All Other Systems at this time: Reviewed and Negative Physical Exam Physical Exam Physical Exam VITALS: Reviewed and as above. GENERAL: Alert, no apparent distress. HEENT: Normocephalic, atraumatic, PERRL, EOMI, dry mucosa, no erythema RESPIRATORY: Lungs clear, normal breath sounds, no respiratory distress. CHEST: No accessory muscle use, no retractions CV: Regular rate, rhythm, no edema, no murmur, No: JVD GI: Soft, non-tender, bowels sounds present, no rebound, guarding, or rigidity BACK: No CVA tenderness, or swelling MUSCULOSKELETAL: No deformities, no edema SKIN: Warm and dry, no rash NEURO: Oriented x4, slightly slurred speech moves all extremities PSYCH: Normal mood and affect, no agitation Progress Results/Orders Results/Orders Orders - OHLALEXANDRA LYNCH MD Urinalysis, Cult If Indicated (12/26/24 16:55) Completed Orders - ALEXANDRA PEREZ MD Cbc/Diff (12/26/24 16:55) Procalcitonin (12/26/24 16:55) BMP (12/26/24 16:55) Normal Saline 1000ml (0.9% Sodium Chlori (12/26/24 17:40) PHOS (12/26/24 17:28) Vital Signs 12/26/24 12/26/24 12/26/24 12/26/24 16:29 17:34 17:35 18:43 Temp 97.8 Pulse 83 72 73 Resp 17 18 18 18 B/P (MAP) 113/53 130/61 (84) 134/58 (83) Pulse Ox 99 98 100 O2 Flow Rate 0 0 0 12/26/24 20:41 Pulse 74 Resp 18 B/P (MAP) 137/62 Pulse Ox 99 Laboratory Tests Test 12/26/24 17:28 White Blood Count 7.2 Red Blood Count 3.81 L Hemoglobin 11.4 L Hematocrit 33.9 L Mean Corpuscular Volume 89.1 Mean Corpuscular Hemoglobin 30.0 Mean Corpuscular Hemoglobin Concent 33.7 Red Cell Distribution Width 15.0 H Platelet Count 213 Mean Platelet Volume 8.0 Neutrophils (%) (Auto) 77.5 H Lymphocytes (%) (Auto) 15.2 L Monocytes (%) (Auto) 5.1 Eosinophils (%) (Auto) 1.8 Basophils (%) (Auto) 0.4 Neutrophils # (Auto) 5.6 Lymphocytes # (Auto) 1.1 Monocytes # (Auto) 0.4 Eosinophils # (Auto) 0.1 Basophils # (Auto) 0.0 CBC Comment Sodium Level 137 Potassium Level 3.2 L Chloride Level 110 H Carbon Dioxide Level 21.0 L Anion Gap 6 L Blood Urea Nitrogen 13 Creatinine 0.58 Estimated GFR/1.73 m2 > 90 BUN/Creatinine Ratio 22.4 H Glucose Level 266 H Calcium Level 5.6 *L Phosphorus Level 2.3 Albumin 1.8 L Procalcitonin < 0.05 Chemistry Comments Medical Decision Making Additional information obtaine: old records Findings Patient presented to the emergency room with hyperglycemia. Differentials include but are not limited to infectious process, diabetic ketoacidosis, dehydration, acute kidney injury therefore emergent labs ordered. Patient does have hypocalcemia along with hypokalemia. That has has been replenished. Patient's sugars improved. No diabetic ketoacidosis. The patient states she was not started back on her diabetic meds after recent stay at [facility], I have restarted her metformin her Ozempic and her Jardiance. The patient is otherwise hemodynamically stable prior hospitalizations has been reviewed. The patient's pulse oximetry was interpreted as normal and adequate and her electronic device monitor was interpreted as a sinus rhythm. The patient will be discharged Differential Diagnosis h Departure Disposition: HOME / SELF CARE / HOMELESS Impression: Primary Impression: Hyperglycemia Additional Impressions: Hypokalemia Hypocalcemia Discharge Instructions: Hyperglycemia, [id number] Referrals: NO PRIMARY CARE PROVIDER (PCP) Prescriptions Semaglutide (Ozempic) 2 Mg/0.75 Ml (8 Mg/3 Ml) Pen.injctr 2 MG SQ Q7D for 30 Days, #4 UNIT Prov: ALEXANDRA PEREZ MD 12/26/24 Empagliflozin (Jardiance) 25 Mg Tablet 1 TAB PO QAM, #30 TAB Prov: ALEXANDRA PEREZ MD 12/26/24 Metformin Hcl* (Metformin ER*) 500 Mg Tab.sr.24h 1 TAB PO Q12H for 30 Days, #60 TAB Prov: ALEXANDRA PEREZ MD 12/26/24 Signature Scribe Signature: No scribe Attestation: The note accurately reflects work and decisions made by me.Alexandra Perez MD 12/27/24 13:29 The note accurately reflects work and decisions made by me.Naresh Taylor MD 12/26/24 20:17 DCALEXANDRA MARIE MD Dec 26, 2024 16:33 NARESH TAYLOR MD Dec 26, 2024 20:18
[2024-12-26 17:44] LABS: MEAN PLATELET VOLUME 8.0 FL (7.4-10.4); RED CELL DISTRIBUTION WIDTH 15.0 % (11.5-14.5)
[2024-12-26] MEDS: normal saline 1000ML IV soln IVB ONE (17:51)
[2024-12-26] MEDS ORDERED: METF-900 PO (17:54)
[2024-12-26] MEDS ORDERED: SEMA2PEN SQ (17:57)
[2024-12-26] MEDS ORDERED: EMPA25TA PO (17:57)
[2024-12-26 18:02] LABS: CREATININE 0.58 MG/DL (0.40-0.90); TOTAL CARBON DIOXIDE 21.0 MMOL/L (24-32); eCRCL 69 ML/MIN; eGFR > 90 ML/MIN
[2024-12-26] MEDS: potassium Cl 20 mEq SR tablet PO STA (18:55)
[2024-12-26 19:12] LABS: PHOSPHORUS 2.3 MG/DL (2.3-4.5)
[2024-12-26] MEDS: CALCIUM GLUC 1gm/50ml NACL,iso 100 ML IV ONE (20:27)
[2024-12-26 20:41] VITALS: BP 137/62; PULSE 74; RESP 18; O2SAT 99
== END 2024-12-26 21:09 | disposition home or self-care (01) ==
LOC: ER 16:27
DX: E11.65 Type 2 diabetes mellitus with hyperglycemia (principal); E03.9 Hypothyroidism, unspecified; E83.51 Hypocalcemia; E87.6 Hypokalemia; F12.90 Cannabis use, unspecified, uncomplicated; I10 Essential (primary) hypertension; F41.9 Anxiety disorder, unspecified; F32.A Depression, unspecified; J44.9 Chronic obstructive pulmonary disease, unspecified; Z88.5 Allergy status to narcotic agent; Z90.710 Acquired absence of both cervix and uterus; Z79.899 Other long term (current) drug therapy; Z79.84 Long term (current) use of oral hypoglycemic drugs; Z60.2 Problems related to living alone
CPT/HCPCS: 36415; 80048; 84100; 84145; 85025; 96361; 96365; 96366; 99284; J0612; J7030

== ENCOUNTER 2025-01-09 17:01 | Inpatient (IN) | payer MEDICARE, MEDICAID ==
[~2025-01-09] VITALS: Ht 157.5 cm; Wt 84.8 kg
[~2025-01-09 17:01] MED LIST changes: +METF-900 PO
--- NOTE | 2025-01-09 19:33 | Physician Documentation ---
History of Present Illness ~ Chief Complaint: Confused Stated Complaint: ALTERED Time Seen by MD: 19:20 Primary Medical Doctor: Angie Donahue Mode of Arrival: EMS, Stretcher HPI Patient presents to the emergency room accompanied by family member for being slow to respond. She also fell yesterday striking the right side of her head. No loss of consciousness or vomiting. No dysuria. Patient states she is feeling too weak to even get up. Patient endorses not drinking enough water because she does not like to get up and pee. Medication Reconciliation Allergies: Coded Allergies: codeine (Verified Allergy, Unknown, 01/09/25) Scheduled Carbidopa/Levodopa (Carbidopa-Levo ER 25-100 Tab), 2 TAB PO TID, (Reported) Cyanocobalamin (Vitamin B-12) (Vitamin B-12), 1 CAP PO DAILY, (Reported) Empagliflozin (Jardiance), 1 TAB PO QAM Glimepiride* (Amaryl*), 6 MG PO DAILY, (Reported) Levothyroxine* (Synthroid*), 1 TAB PO DAILY, (Reported) Losartan Potassium (Losartan Potassium), 1 TAB PO QAM, (Reported) Metformin HCl (Metformin HCl ER), 1 TAB PO WS, (Reported) Metformin Hcl* (Metformin ER*), 1 TAB PO Q12H Primidone (MYSOLINE tablet), 0.5 TAB PO QPM, (Reported) Primidone (MYSOLINE tablet), 1 TAB PO QAM, (Reported) Semaglutide (Ozempic), 2 MG SQ Q7D Venlafaxine Hcl XR* (Effexor XR*), 1 CAP PO DAILY, (Reported) Scheduled PRN Albuterol Sulfate (Proair Hfa), 1-2 PUFF INH Q4H PRN for SOB or wheezing, (Reported) Past Medical History Past Medical History: Parkinson's Disease, Hypertension, Asthma, COPD, *GI/HEPATOBILIARY*, Diabetes, Hypothyroidism, Anxiety, Depression Past Surgical History: hysterectomy, other Patient History: (CABG) Coronary artery bypass grafting FATHER, Onset:Unknown (CHF) Congestive heart failure FATHER, Onset:Unknown MOTHER, Onset:Unknown (COPD) Chronic obstructive lung disease MOTHER, Onset:Unknown (Cancer) Malignant carcinoid tumor FATHER, Onset:60 years & older MOTHER, Onset:60 years & older (DM Type 2) Diabetes mellitus type 2 FATHER, Onset:Unknown (DC) Myocardial infarction FATHER, Onset:Unknown Hypercholesterolemia FATHER, Onset:Unknown No Family History of: (CAD) Coronary arteriosclerosis Alcohol Use: None Drug Use: marijuana Lives with: Alone, Other Lives In: Home Review of Systems ROS All review of systems negative except as per HPI Physical Exam Vital Signs: Temperature: 97.4, Source: Temporal, Heart Rate: 80, Respiratory Rate: 14, BP: 125/61, Pulse Oximetry: 98, Weight: 86.000 Oxygen Flow Rate: 0 Physical Exam General: Patient is awake, alert, oriented x4 in no acute distress. Slow to respond Head: Normocephalic and atraumatic. Eyes: Conjunctival normal. EOMI. PERRL. ENT: Mucous membranes dry. Neck: Supple, trachea is midline. Chest: Clear to auscultation bilaterally without rales, rhonchi, or wheezes. There is no accessory muscle use or retractions. Cardiac: RRR without murmurs, gallops, or rubs. Abd: Soft, nondistended, nontender, with normoactive bowel sounds. No guarding, rebound, or rigidity. Progress Results/Orders Results/Orders Orders - NARESH TAYLOR MD Chest,Single View (01/09/25 20:05) Ct Head (01/09/25 19:43) Page Hospitalist (01/09/25 22:04) Fill Out Med Reconciliation (01/09/25 22:04) Completed Orders - NARESH TAYLOR MD Electrocardiogram (01/09/25 19:31) MG (01/09/25 19:31) Chest,Single View (01/09/25 20:05) Procalcitonin (01/09/25 19:31) BMP (01/09/25 19:31) Ct Head (01/09/25 19:43) Hgb A1c (01/09/25 20:26) Vital Signs 01/09/25 01/09/25 01/09/25 01/09/25 17:03 17:07 17:42 18:30 Temp 97.4 97.4 Pulse 76 74 80 Resp 16 16 14 B/P (MAP) 122/57 122/57 (78) 125/61 (82) Pulse Ox 99 97 98 O2 Flow Rate 0 0 0 01/09/25 01/09/25 19:30 20:30 Temp 97.4 97.4 Pulse 75 73 Resp 11 13 B/P (MAP) 123/49 (73) 114/60 (78) Pulse Ox 97 97 O2 Flow Rate 0 0 Laboratory Tests Test 01/09/25 20:26 01/09/25 21:41 CBC Comment Sodium Level 132 L Potassium Level 4.9 Chloride Level 100 Carbon Dioxide Level 25.5 Anion Gap 7 L Blood Urea Nitrogen 25 H Creatinine 1.05 H Estimated GFR/1.73 m2 52 BUN/Creatinine Ratio 23.8 H Glucose Level 159 H Hemoglobin A1c 8.0 H Calcium Level 8.4 L Magnesium Level 2.3 Albumin 3.0 L Procalcitonin 0.08 Chemistry Comments White Blood Count 8.3 Red Blood Count 4.52 Hemoglobin 13.9 Hematocrit 41.1 Mean Corpuscular Volume 90.8 Mean Corpuscular Hemoglobin 30.7 Mean Corpuscular Hemoglobin Concent 33.8 Red Cell Distribution Width 16.5 H Platelet Count 287 Mean Platelet Volume 8.0 Neutrophils (%) (Auto) 70.4 Lymphocytes (%) (Auto) 20.0 L Monocytes (%) (Auto) 7.2 Eosinophils (%) (Auto) 1.9 Basophils (%) (Auto) 0.5 Neutrophils # (Auto) 5.8 Lymphocytes # (Auto) 1.7 Monocytes # (Auto) 0.6 Eosinophils # (Auto) 0.2 Basophils # (Auto) 0.0 Medical Decision Making Additional information obtaine: old records Findings Patient presents to the emergency room with altered mental status. We will admit for further investigation. Differential Dx:Considerations: Include: dehydration, Delirium Tr., DKA, encephalopathy, hypercalcemia, HHNC, hypoglycemia, hypernatremia, hyponatremia, hypoxia, postictal, closed head injury, C-spine injury, CVA, mass lesion, subarachnoid hemorrhage, drug overdose, encephalopathy, ETOH intoxication, medication toxicity, infection - meningitis, infection - sepsis, infection - UTI, heart failure, renal failure, respiratory failure, hyperthermia, hypothermia, other Departure Disposition: HOME / SELF CARE / HOMELESS Impression: Primary Impression: Altered mental status Condition: Guarded Referrals: NO PRIMARY CARE PROVIDER (PCP) Signature Scribe Signature: No scribe Attestation: The note accurately reflects work and decisions made by me.Naresh Taylor MD 01/09/25 23:13 NARESH TAYLOR MD Jan 09, 2025 19:33
--- NOTE | 2025-01-09 19:56 | ELECTROCARDIOGRAPH REPORT ---
[facility] Test Date: 2025-01-09 Test Time: 19:53:00 Pat Name: CASS MIJARES Department: PSYCHIATRIC- Room: [place] [address] Gender: F Supervisor [employer]: : [phone] Requested By: JON HERNÁNDEZ Order Number: [id number] Reading MD: Dr. PABLO Sigala Measurements Intervals [place] Rate: 73 P: 50 GA: 147 QRS: 24 QRSD: 89 T: 69 QT: 393 QTc: 433 Interpretive Statements Sinus rhythm Low voltage, precordial leads Borderline T wave abnormalities Electronically Signed On 01-10-2025 17:34:[address] PABLO Sigala Please click the below link to view image of tracing.
--- NOTE | 2025-01-09 20:00 | RADIOLOGY REPORT ---
EXAM: CT CT HEAD INDICATION: fall w head strike TECHNIQUE: CT of the head without intravenous contrast. Radiation Dose Information: CT Dose: CTDI volume is 63.4 mGy. Dose-length product is 1174.6 mGy*cm The dose indicators for CT are the volume Computed Tomography (CT) Dose Index (CTDIvol) and the Dose Length Product (DLP), and are measured in units of mGy and mGy-cm, respectively. These indicators are not patient dose, but values generated from the CT scanner acquisition factors. The report includes radiation exposure data for exposures received during this examination. COMPARISON: CT HEAD on DOS: 01/19/22 FINDINGS: Motion artifact degrades fine detail. There is small hyperdensity within the central sophy. There are global involutional changes with compensatory prominence of the ventricles and sulci. Patchy periventricular and subcortical white matter hypoattenuation is nonspecific but may be related to small vessel ischemic disease. There is no evidence for acute territorial infarct or mass effect. Bilateral lens implants. The visualized paranasal sinuses and mastoid air cells are clear. The soft tissues and osseous structures appear within normal limits. IMPRESSION: 1. 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 Hemorrhage cannot be entirely excluded in the setting of trauma. Comparison with any prior outside imaging would be helpful in assessing acuity and interval change. If no prior imaging is available, MRI is suggested for confirmation. 2. Age-related involutional changes. Chronic microvascular changes.
[2025-01-09 20:44] LABS: CREATININE 1.05 MG/DL (0.40-0.90); TOTAL CARBON DIOXIDE 25.5 MMOL/L (24-32); eCRCL 42 ML/MIN; eGFR 52 ML/MIN
[2025-01-09 21:54] LABS: MEAN PLATELET VOLUME 8.0 FL (7.4-10.4); RED CELL DISTRIBUTION WIDTH 16.5 % (11.5-14.5)
[2025-01-09] MEDS ORDERED: mag hydrox/Alum hydrox/simeth 30ml oral suspension PO PRN (22:20)
[2025-01-09] MEDS ORDERED: potassium Cl 40MEQ/1/2NS 520ml 520 ML IV PRN (22:20)
[2025-01-09] MEDS ORDERED: ondansetron/PF 4mg/2ml inj IV PRN (22:20)
[2025-01-09] MEDS ORDERED: potassium Cl 20 mEq SR tablet PO PRN ×2 (22:20)
[2025-01-09] MEDS ORDERED: magnesium Cl slow-release 64mg tablet PO PRN (22:20)
[2025-01-09] MEDS ORDERED: HYDROmorphone inj. 0.5 MG/0.5 ML DISP.SYRIN IV PRN (22:20)
[2025-01-09] MEDS ORDERED: magnesium sulf-water 4G/100mL 100 ML IV PRN (22:20)
[2025-01-09] MEDS ORDERED: magnesium sulf-water 2g/50mL 50 ML IV PRN (22:20)
[2025-01-10] VITALS (15 sets, daily range): BP systolic 114–158; BP diastolic 34–69; PULSE 73–94; RESP 12–20; TEMP 96.9–97.9; O2SAT 83–100
[2025-01-10] MEDS ORDERED: OMEP20CA15 PO (01:19)
[2025-01-10] MEDS ORDERED: ONDA-103 PO (01:22)
[2025-01-10] MEDS ORDERED: FLUT12AE2 INH (01:24)
[2025-01-10] MEDS ORDERED: ROSU40TA89 PO (01:26)
[2025-01-10] MEDS ORDERED: PIOG15TA8 PO (01:27)
[2025-01-10] MEDS ORDERED: EMPA25TA PO (01:29)
[2025-01-10] MEDS ORDERED: [UNRECOGNIZED DRUG - CODE] PO (01:40)
[2025-01-10] MEDS: normal saline 1000ml 1,000 ML IV ONE (02:18)
--- NOTE | 2025-01-10 02:39 | HISTORY AND PHYSICAL-Residence ---
History & Physical Providers to Resident Creating Document: TY CASTANEDA, DAWNA ~ History of Present Illness Primary Medical Doctor: Angie Donahue Reason for Admit\Complaint: Weakness and mechanical falls History of Present Illness 74-year-old female was brought in after a mechanical fall at home last night. She reported tripping over a walker and striking her head and cheek. She has a history of multiple prior falls; she was admitted here in April for severe generalized weakness and a mechanical fall with a reported episode of loss of consciousness. The caregiver reports progressive weakness over the last 3 months with legs giving way. She lives alone at home but was brought by her caregiver because of marked weakness. She follows with primary care at [facility] and saw a neurologist a few weeks ago. At this visit the patients speech is slurred which she claims has begau a few weeks ago and is slow and slurred compared with her baseline. Todays non- contrast head CT demonstrated a tiny hyperdensity at sophy and the radiologist interpreted as a chronic finding after comparing with a 2021 CT (no acute hemorrhage). She has no focal motor deficits on exam today. [facility] Neurologist: Cannot Recall Ambulates using a walker; also uses a wheelchair for longer ambulation Lives at home by herself POA: Nephew, Robin Guardado; contact information [phone] Allergies: Coded Allergies: codeine (Verified Allergy, Unknown, 01/09/25) Home Medications Home Medications Active Reported Sinemet 10-100 mg Tablet (Carbidopa/Levodopa) 10 Mg-100 Mg Tablet 2 Tab PO Q8H Jardiance (Empagliflozin) 25 Mg Tablet 1 Tab PO DAILY Actos* (Pioglitazone HCl) 15 Mg Tablet 1 Tab PO DAILY Rosuvastatin Calcium 40 Mg Tablet 1 Tab PO DAILY Ondansetron HCl 4 Mg Tablet 1 Tab PO Q6H PRN Omeprazole 20 Mg Capsule. 1 Cap PO DAILY MYSOLINE tablet (Primidone) 250 Mg Tablet 3 Tab PO QAM 30 Days Metformin HCl ER (Metformin HCl) 500 Mg Tab.er.24 1,000 Mg PO BID 30 Days Vitamin B-12 (Cyanocobalamin (Vitamin B-12)) 1,000 Mcg Capsule 1 Cap PO DAILY 30 Days Synthroid* (Levothyroxine Sodium) 175 Mcg Tab 1 Tab PO DAILY 30 Days Amaryl* (Glimepiride) 4 Mg Tablet 6 Mg PO DAILY Effexor XR* (Venlafaxine HCl) 37.5 Mg Cap.sr.12h 1 Cap PO DAILY 30 Days Carbidopa-Levo ER 25-100 Tab (Carbidopa/Levodopa) 25 Mg-100 Mg Tablet.er 2 Tab PO TID Proair Hfa (Albuterol Sulfate) 1 Puff Inh 1-2 Puff INH Q4H PRN Losartan Potassium 50 Mg Tablet 1 Tab PO QAM Past Medical History Past Medical History Melanoma Type 2 diabetes hznizmog-nrr-cltuwta-dependent History of seizures Parkinson's disease Hypertension Osteoarthritis COPD Cataracts Patient denied history of CVA, but her prior medical records indicate PMH of CVA Past Surgical History Surgical History Comment Tonsillectomy Hysterectomy for fibroids Hemorrhoidectomy Family History Family History: (CABG) Coronary artery bypass grafting FATHER, Onset:Unknown (CHF) Congestive heart failure FATHER, Onset:Unknown MOTHER, Onset:Unknown (COPD) Chronic obstructive lung disease MOTHER, Onset:Unknown (Cancer) Malignant carcinoid tumor FATHER, Onset:60 years & older MOTHER, Onset:60 years & older (DM Type 2) Diabetes mellitus type 2 FATHER, Onset:Unknown (PA) Myocardial infarction FATHER, Onset:Unknown Hypercholesterolemia FATHER, Onset:Unknown No Family History of: (CAD) Coronary arteriosclerosis Past Social History Social History Comment Occasional smoking, 1-2 cigarettes a month Quit alcohol many years ago Admits to smoking marijuana, last few months ago Smoking: Quit less than 1 year Alcohol Use: None Drug Use: Marijuana Lives with: Alone, Other Lives In: Home ROS ROS Reviewed in full. All negative except for pertinent positive HPI. Exam Vitals: Vital Signs Date Time Temp Pulse Resp B/P (MAP) Pulse Ox O2 Delivery O2 Flow Rate FiO2 01/09/25 22:30 97.4 81 16 135/55 (81) 99 0 General: Awake , alert, and oriented x4, resting comfortably in the bed, in no acute distress HEENT: Atraumatic, normocephalic, EOMI, anicteric sclera ; pink conjunctiva Neck: Trachea midline. Supple, full range of motion, no JVD Cardiac: Regular rhythm, regular rate with no murmurs all over the precordium. Respiratory: Equal breath sounds bilaterally, no tachypnea, no wheezing ,rub or rales, Chest wall is symmetric and without deformity. Gastrointestinal: Abdomen symmetric, non-distended, soft, non-tender, normal bowel sounds x4 quadrant, normoactive, no hepatosplenomegaly Musculoskeletal: No pedal edema, no cyanosis Neurological: Mental status exam: alert and consciousness, slurred speech - Cranial nerve test: Cranial nerves 2-12 intact - Motor system: Power 4/5, no involuntary movements - Sensory system: Intact - Reflex testing: Biceps, triceps and knee reflexes 2+ - Cerebellar: Normal Skin: Scaly skin changes noted around her lip extending from nasal folds to chin Diagnostic Data Last Recorded Lab Results: 01/09/25214001/09/252025 Advance Care Planning Advanced Care plannin - 30 Minutes Additional Plan 1) Mechanical fall with head impact Fall last night with head and cheek impact CT head today showed: tiny hyperdensity present but radiologist confirmed that it is a chronic change compared with 2021 CT; no acute intracranial hemorrhage identified on current CT Plan Continue tele monitoring Neuro checks q2h Ordered MRI brain, follow up Tele neurology consulted, awaiting recommendations If any deterioration or new focal deficit please contact Neurology urgently Facial bone x-ray ordered 2) New/sudden slurred speech (dysarthria / possible cortical/subcortical) CVA, unable to exclude New slurred/slow speech noted over past few weeks and present today No clear motor deficits on exam, but speech change is since the past 3 months Plan Neurology consulted, awaiting recommendations Pending MRI, vascular carotid ultrasound and echo with bubble study ordered Troponin negative Continue telemetry for possible new arrhythmias Speech therapy consulted, NPO until patient passes BSS Oral aspirin 325 mg followed by aspirin 81 mg Consider ordering Plavix based on MRI results Atorvastatin 80 mg ordered; resume home rosuvastatin 40 mg on discharge 3) Parkinson's disease Recurrent falls and progressive weakness for 3 months Autonomic dysfunction 2/2 Parkinson's disease Seborrheic dermatitis Patient follows up with Neurology at [facility] for Parkinson's Several falls over recent months, progressive lower extremity weakness and legs giving way. Prior episode of loss of consciousness reported Parkinson's can itself cause autonomic dysfunction leading to multiple falls Patient has scaly skin over her forehead and also surrounding her mouth Plan Orthostatic vitals ordered Continue telemetry PT/OT ordered Continue follow up with Neurology at [facility] Continue home medication carbidopa and levodopa 25-100 mg 2 tablets orally 3 times a day Continue triamcinolone acetonide, apply twice a day 4) Mild Hyponatremia: Patient's sodium on discharge in April 2024 was 132 Follow up with urine osmolality, serum osmolality and urine sodium Possibly secondary to hypovolemia, continue NS at 100 cc/hour 5) Type 2 Diabetes mellitus A1c 8.0 Current glucose levels 127 Patient is on home metformin 500 mg PID, Jardiance 25 mg and glimepiride 4 mg, pioglitazone 15 mg Maintain inpatient glucose levels between 140-180 Ordered medium dose sliding scale insulin 6) Hypothyroidism prior TSH 4.75 (2023) Known hypothyroidism; prior TSH mildly elevated Plan Order TSH and free T4 Continue home medication levothyroxine 175 mcg daily Consider contribution of hypothyroidism to weakness/slowed speech after acute causes excluded. 7) Hypertension: Continue home medication losartan 50 mg daily 8) Deconditioning grommet worker consulted Patient will benefit from rehab placement 9) COPD-stable: DuoNeb p.r.n. 10) Acute kidney injury- vasomotor nephropathy Creatinine 1.05, baseline creatinine 0.67, continue fluid resuscitation NS at 100 cc/hour Code Status: Limited DVT Prophylaxis: Heparin SQ Disposition: Awaiting neurology consult Ty Castaneda MD Internal Medicine Resident, PGY-2 Patient case discussed with resident, agree with the assessment and plan as above. Charlotte Calderon MD Critical Care Date of Service: Jan 10, 2025 Billing Provider: CHARLOTTE CALDERON MD,TY, RES Jan 10, 2025 02:39 CHARLOTTE CALDERON MD Jan 10, 2025 14:31
[2025-01-10 02:46] LABS: INFLUENZA TYPE A ANTIGEN RAPID NEGATIVE (Negative); INFLUENZA TYPE B ANTIGEN RAPID NEGATIVE (Negative)
[2025-01-10] MEDS ORDERED: dextrose 50%-water 50ml dispensing syringe IV PRN ×2 (05:35)
[2025-01-10] MEDS ORDERED: glucagon, human recombinant 1mg kit SUBCUT PRN (05:35)
[2025-01-10] MEDS ORDERED: DEXTROSE 15 GM of carb/4 tabs (each vial/BOTTLE has 4 tablets) PO PRN ×2 (05:35)
--- NOTE | 2025-01-10 05:49 | CONSULTATION REPORT ---
History of Present Illness Providers to CC ~ Reason for Admit\\Admit Dx: Weakness and mechanical falls Refering MD: Angie Donahue Allergies: Coded Allergies: codeine (Verified Allergy, Unknown, 01/09/25) Home Medications Home Medications Active Reported Sinemet 10-100 mg Tablet (Carbidopa/Levodopa) 10 Mg-100 Mg Tablet 2 Tab PO Q8H Jardiance (Empagliflozin) 25 Mg Tablet 1 Tab PO DAILY Actos* (Pioglitazone HCl) 15 Mg Tablet 1 Tab PO DAILY Rosuvastatin Calcium 40 Mg Tablet 1 Tab PO DAILY Ondansetron HCl 4 Mg Tablet 1 Tab PO Q6H PRN Omeprazole 20 Mg Capsule.dr 1 Cap PO DAILY MYSOLINE tablet (Primidone) 250 Mg Tablet 3 Tab PO QAM 30 Days Metformin HCl ER (Metformin HCl) 500 Mg Tab.er.24 1,000 Mg PO BID 30 Days Vitamin B-12 (Cyanocobalamin (Vitamin B-12)) 1,000 Mcg Capsule 1 Cap PO DAILY 30 Days Synthroid* (Levothyroxine Sodium) 175 Mcg Tab 1 Tab PO DAILY 30 Days Amaryl* (Glimepiride) 4 Mg Tablet 6 Mg PO DAILY Effexor XR* (Venlafaxine HCl) 37.5 Mg Cap.sr.12h 1 Cap PO DAILY 30 Days Carbidopa-Levo ER 25-100 Tab (Carbidopa/Levodopa) 25 Mg-100 Mg Tablet.er 2 Tab PO TID Proair Hfa (Albuterol Sulfate) 1 Puff Inh 1-2 Puff INH Q4H PRN Losartan Potassium 50 Mg Tablet 1 Tab PO QAM Past Family History Family History: (CABG) Coronary artery bypass grafting FATHER, Onset:Unknown (CHF) Congestive heart failure FATHER, Onset:Unknown MOTHER, Onset:Unknown (COPD) Chronic obstructive lung disease MOTHER, Onset:Unknown (Cancer) Malignant carcinoid tumor FATHER, Onset:60 years & older MOTHER, Onset:60 years & older (DM Type 2) Diabetes mellitus type 2 FATHER, Onset:Unknown (ND) Myocardial infarction FATHER, Onset:Unknown Hypercholesterolemia FATHER, Onset:Unknown No Family History of: (CAD) Coronary arteriosclerosis Physical Exam Last Vital Signs Recorded: Temperature: 97.8, Source: Oral, Heart Rate: 83, Respiratory Rate: 16, BP: 158/34, Pulse Oximetry: 94, Weight: 84.800 Results Diagram Lab Result Diagram: 01/09/25214001/09/252025 Assessment/Plan Additional Plan [facility] Neuro Note # Demographics Consult Type: Acute Stroke Level 2 (4.5-24 hrs) Patient Location: Inpatient First Name: Symone Last Name: Duran Date of : 1950 Age: 74 Gender: Female Facility: [facility] Time of Initial Page (): 01/10/2025 05:32 First Contact with Site (): 01/10/2025 05:33 # HPI Chief Complaint: - speech changes History: 74 y/o woman admitted with metabolic encephalopathy. Stroke alert activated for weakness and new speech changes. Patient also reports a fall a couple nights ago. Takes aspirin "once in a while." Per notes, patient has had progressive weakness over the last three months and slurred speech for that last few weeks. # Scores Time of exam and NIHSS (): 01/10/2025 05:39 Level of Consciousness 1a: [0] = Alert; keenly responsive LOC Questions 1b: [0] = Answers both questions correctly LOC Commands 1c: [0] = Performs both tasks correctly Best Gaze 2: [0] = Normal Visual 3: [0] = No visual loss Facial Palsy 4: [1] = Minor paralysis Motor Arm Left 5a: [0] = No drift Motor Arm Right 5b: [0] = No drift Motor Leg Left 6a: [0] = No drift Motor Leg Right 6b: [0] = No drift Limb Ataxia 7: [0] = Absent Sensory 8: [0] = Normal Best Language 9: [0] = No aphasia Dysarthria 10: [1] = Qihz-gz-mkmzdvsr dysarthria Extinction and Inattention 11: [0] = No abnormality NIHSS Total: 2 # PMH-FH-SH Past Medical History: - seizure - Diabetes - Parkinson's - hypertension - stroke - COPD # Data Other Labs: Hgb A1c [address]: - per radiologist read pontine hyperdensity not significantly changed from prior study # Assessment Impression: - Weakness # Plan Labs: - ua - B12 CK Imaging: (urgency: routine): - MRI Brain with AND without contrast Therapy/Evaluation: - PT/OT evaluation - speech/swallow consultation Other: - If patient has any neurological deterioration please call me back immediately Additional Recommendations: Additional testing/treatment to depend on results and clinical course. # Logistics Attestation of consult completion: The patient is located at: [facility]. Facility staff participated in the visit. I performed this telemedicine visit from my offsite office utilizing interactive 2 way audio and visual telecommunication technology at the request of the onsite inpatient provider. Total time spent in telemedicine encounter: I spent 15 minutes reviewing clinical data and/or imaging, obtaining history, examining the patient, communicating with the onsite care team, and in preparation of this report. # Demographics First Name: Symone Last Name: Duran Facility: [facility] ROSMERY NOVOA MD Jan 10, 2025 05:49
[2025-01-10] MEDS: normal saline 1000ml 1,000 ML IV SCH (05:50)
[2025-01-10] MEDS ORDERED: CARB1TAB36 PO (06:07)
[2025-01-10] MEDS: INSULIN LISPRO 100 UNIT/ML INSULN.PEN MULTI-DOSE SQ SCH (07:00)
[2025-01-10] MEDS: ipratropium/albuterol 3ml nebule NEB SCH (07:00)
[2025-01-10 07:22] LABS: OSMOLALITY 286 MOSM/K (280-300)
[2025-01-10 07:50] LABS: CHOL/HDL RATIO 3.6 (0.00-4.99); CREATININE 0.93 MG/DL (0.40-0.90); LDL CHOLESTEROL 102 MG/DL (50-100); TOTAL CARBON DIOXIDE 24.4 MMOL/L (24-32); eCRCL 43 ML/MIN; eGFR 59 ML/MIN
[2025-01-10] MEDS: docusate sod 100mg capsule PO SCH (08:00)
[2025-01-10] MEDS: K and/or MAG REPLACEMENT MC SCH (08:00)
--- NOTE | 2025-01-10 08:04 | RADIOLOGY REPORT ---
CHEST RADIOGRAPH Indication: SEPSIS Technique: Single frontal view of the chest was obtained Comparison: DI CHEST,SINGLE VIEW on DOS: 04/24/24, DI CHEST,SINGLE VIEW on DOS: 10/08/23, DI CHEST,SINGLE VIEW on DOS: 10/02/23, DI CHEST,SINGLE VIEW on DOS: 09/26/22 FINDINGS: Lines and Tubes: None Lungs: No focal consolidation. Pleura: No effusion. No pneumothorax. Cardiomediastinal contours: Unremarkable Bones: No acute osseous abnormality. IMPRESSION: No acute cardiopulmonary disease.
[2025-01-10] MEDS: heparin, porcine 5000 units/ml vial SQ SCH (08:43)
--- NOTE | 2025-01-10 09:14 | RADIOLOGY REPORT ---
CLINICAL INDICATION: Mechanical fall TECHNIQUE: DI FACIAL BONES,3VW MIN Comparison: None FINDINGS/IMPRESSION: : There is no evidence of acute fracture or dislocation. Soft tissues are unremarkable.
[2025-01-10 09:27] LABS: MEAN PLATELET VOLUME 8.7 FL (7.4-10.4); RED CELL DISTRIBUTION WIDTH 16.7 % (11.5-14.5)
[2025-01-10 10:53] LABS: LEUKOCYTE ESTERASE ,URINE NEGATIVE (Neg); OCCULT BLOOD,URINE NEGATIVE (Neg)
--- NOTE | 2025-01-10 11:04 | VASCULAR REPORT ---
Preliminary Report The above named patient was referred for a NON-INVASIVE CEREBROVASCULAR EVALUATION. The evaluation includes grayscale imaging, color flow Doppler and spectral analysis of the bilateral carotid and vertebral arteries. Patient IN-PATIENT Berry Simon Indications Dysarthria Risk Factors Hypertension: Diabetes Smoking Doppler Spectral Velocity Analysis Right Left pCCA 79/14 cm/s pCCA 93/20 cm/s dCCA 65/10 cm/s dCCA 57/12 cm/s ECA 230/ cm/s ECA 289/ cm/s pICA 108/16 cm/s pICA 175/26 cm/s Katharine 64/9 cm/s Katharine 100/20 cm/s dICA 93/18 cm/s dICA 86/20 cm/s Vert. 61/11 cm/s Vert. 60/13 cm/s Subcl. 135/ cm/s Subcl. 134/ cm/s ICA/CCA 1.66 ICA/CCA 3.07 Real-Time B-Mode Imaging Area Findings Right Left CCA Plaque Composition Heterogeneous Heterogeneous Plaque Description Irregular Irregular BIF Plaque Composition Heterogeneous with calcification Heterogeneous with calcification Plaque Description Irregular Irregular ICA Plaque Composition Heterogenous with calcification Heterogeneous with calcification Plaque Description Irregular Irregular ECA Plaque Composition Heterogenous with calcification Heterogenous with calcification Plaque Description Irregular Irregular Vertebral Antegrade Antegrade Subclavian Multiphasic Multiphasic CONCLUSION Heterogeneous irregular plaque with calcification visualized at the carotid artery bifurcation extending into the proximal internal carotid arteries bilaterally, left greater than right. 50-69% stenosis visualized in the left internal carotid artery. Less than 50% stenosis visualized in the right internal carotid artery. Less than 50% stenosis visualized in the common carotid arteries bilaterally. Less than 50% stenosis visualized in the right external carotid artery, however, the right external carotid artery appears to be approaching a 50% stenosis. Greater than 50% stenosis visualized in the left external carotid artery. bilaterally. Antegrade flow visualized in the vertebral arteries bilaterally. Multiphasic waveforms noted in the subclavian arteries
[2025-01-10 11:08] LABS: UA COLLECTION TYPE VOIDED
[2025-01-10 11:09] LABS: NITRITES, URINE NEGATIVE (Neg)
[2025-01-10 11:10] LABS: OSMOLALITY UA 702 MOSM/K (50-1400); SQUAMOUS EPITHELIAL CELL,UR FEW /LPF (FEW); YEAST MANY /HPF (NEGATIVE)
--- NOTE | 2025-01-10 12:36 | RADIOLOGY REPORT ---
CLINICAL HISTORY: For stroke TECHNIQUE: MRI of the brain was performed with and without IV contrast. COMPARISON: CT CT HEAD on DOS: 01/09/25, CT HEAD on DOS: 01/19/22 FINDINGS: There is no abnormal restricted diffusion to suggest acute infarction. There is mild brain volume loss. Few punctate foci of T2 hyperintensity within the white matter both cerebral hemispheres is of doubtful clinical significance. There is no evidence for acute ischemic changes, mass, mass effect, or extra- axial fluid collection. There is no hydrocephalus or midline shift. The cerebral sulci and subarachnoid cisterns are not effaced. The imaged paranasal sinuses are clear. There has been bilateral cataract extraction. The midline structures, including the corpus callosum, are unremarkable. The intracranial flow voids are maintained. There is no abnormal post contrast enhancement. IMPRESSION: No acute intracranial abnormality seen.
[2025-01-10] MEDS ORDERED: GLIM1TAB57 PO (12:50)
[2025-01-10] MEDS: LEVOTHYROXINE SODIUM 100 MCG/5 ML injection IV ONE (14:20)
--- NOTE | 2025-01-10 17:50 | CARDIOLOGY REPORT ---
APPROVED REPORT EXAM: Limited 2D, Doppler, and color-flow Echocardiogram with saline. Patient Location: 3[address] Blood Pressure: 114/50 mmHg Heart Rate: 75 bpm Rhythm: SINUS Indications TRANSIENT ISCHEMIC ATTACK EVALUATE FOR PFO Doctor Of Audiology: none Previous echo: 09/27/22 [facility] (EF 70%, mild MR, trace TR) 2D Dimensions CO 2.8 L/min M-Mode Dimensions IVSd 1.11 (0.7-1.1cm) LVDd 3.37 (4.0-5.6cm) PWd 1.16 (0.7-1.1cm) IVSs 1.46 cm LVDs 1.86 (2.0-3.8cm) FS (%) 45 % PWs 1.66 cm ESV(Teich) 10.6 ml LVEF(%) 77 (>50%) Aortic Valve AoV Peak Anshu. 156.6 cm/s AoV VTI 31.9 cm AO Peak GR. 9.8 mmHg AO Mean GR. 6 mmHg LVOT VTI 21.43 cm LVOT Peak Ansuh. 98.1 cm/s AV DI 0.67 % Mitral Valve MV E Velocity 93.0 cm/s MV Peak Gr. 5 mmHg MV DECEL TIME 268 ms MV A Velocity 120.5 cm/s MV PHT 60 ms E/A Ratio 0.8 MVA (PHT) 3.67 cm2 MV VMax 116.7 cm/s TDI Medial E' P. V 7.60 cm/s E/Medial E' 12.2 Pulmonary Vein S1 Velocity 52.0 cm/s D2 Velocity 31.7 cm/s PVa Velocity 33.6 cm/s PVa Duration 116 msec LEFT VENTRICLE Hypovolemic LV size with hyperdynamic function. Mild concentric hypertrophy. Resting LV gradient of 40 mmHg, gradient does not increase with Valsalva maneuver. Velocity increase throughout may be due to hyperdynamic LV function, although difficult to evaluate due to poor acoustic images. Overall LVEF is 75-80%. ATRIA LA size appears grossly normal. Saline study was performed with 2 IV injections of 10 ccs of agitated normal saline at rest. Grossly negative saline study for right to left flow, although difficult to evaluate due to poor acoustic images. AORTIC VALVE Trileaflet AV appears mildly sclerotic without stenosis or insufficiency. MITRAL VALVE Mild MV annular calcification without stenosis. Trace regurgitation. TRICUSPID VALVE TV appears grossly normal with trace regurgitation. PERICARDIUM Normal pericardium. No effusion. . Other Information Study Quality: Technically limited due to body habitus and poor imaging windows. Conclusion Hypovolemic LV size with hyperdynamic function. Mild concentric hypertrophy. Resting LV gradient of 40 mmHg, gradient does not increase with Valsalva maneuver. Velocity increase throughout may be due to hyperdynamic LV function, although difficult to evaluate due to poor acoustic images. Trileaflet AV appears mildly sclerotic without stenosis or insufficiency. Mild MV annular calcification without stenosis. Trace regurgitation. TV appears grossly normal with trace regurgitation. Normal pericardium. No effusion. .
--- NOTE | 2025-01-10 18:55 | PROGRESS NOTE- Residence ---
Progress Note - Resident Providers to CC Resident Creating Document: GILES GAONA, RES ~ Central Line/PICC still needed: N\A Caraballo-Non Protocol Caraballo Indications Met/Not Met: F/C Indications Not Met Antibiotic Timeout Antibiotic Ordered?: No Subjective Patient was examined bedside. She was alert, oriented x4. However she appeared to have slow speech without any slurring. She seemed to have macroglossia, no fasciculations no deviations. Objective Vital Signs Date Time Temp Pulse Resp B/P (MAP) Pulse Ox O2 Delivery O2 Flow Rate FiO2 01/10/25 15:00 96.9 75 12 114/50 (71) 100 Room Air 01/10/25 08:03 0 21 Result Diagram: 01/10/25 0739 01/10/25 0611 General: Slow, lethargic, well oriented, not confused, not agitated, not in acute distress, well cooperated during the physical. HEENT: Conjunctive are pink, sclerae clear, no icterus, pupil is equal in both sides, reactive to light, no ear discharge, no pharyngeal erythema or an edema. Neck: Supple, no JVD, no lymphadenopathy and thyromegaly. Chest: Equal air entry on both lungs, no added sounds, no wheeze. Cardiovascular: S1-S2 regular sinus rhythm and, regular rate, no gallops, no rubs, no murmurs Abdomen: No visible peristalsis, Bowel sounds present on auscultation, soft, nontender, no guarding, no rigidity Extremities: No rigidity, no resting tremors, tremors in right feet. no pitting edema bilaterally, capillary refill intact, peripheral pulsations are intact on both sides Central Nervous System: No focal neurological deficits, no motor or sensory weakness in all 4 extremities, could move all 4 extremities, 2+ deep tendon reflexes, negative Babinski. Musculoskeletal: No joint swelling, deformities, inflammations, and no scoliosis and back tenderness Skin: Warm and dry. Counseling Services Smoking & Tobacco Cessation: N/A Advance Care Planning Advanced Care planning: N/A Plan Plan Assessment: This is a 74-year-old female with past medical history of Parkinson's, hypothyroidism inconsistent with the medication who came in after a fall last night after care provider suggested so. The care provider noticed speech which was different from before and hematoma with laceration on right cheek. 1. Mechanical fall with head impact CT head today showed: tiny hyperdensity present but radiologist confirmed that it is a chronic change compared with 2021 CT; no acute intracranial hemorrhage identified on current CT MRI: No acute intracranial process, Facial bone x-ray: Unremarkable Plan Continue tele monitoring Neuro checks q2h Fall precautions in place 2. New/sudden slurred speech most likely due macroglossia secondary to hypothyroidism CVA ruled out Other signs of hypothyroidism including fatigue, generalized slowing present. Macroglossia without deviation, fasciculation present. TSH 37, free T4 0.35 Full liquid diet after speech evaluation Started on levothyroxine 50 mcg IV daily after 250 mcg IV loading dose. 3. 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 These symptoms may be missed due to hypothyroidism. We will continue to treat her hypothyroidism before restarting her Parkinson's medication. 4. Isotonic Hyponatremia: Continue NS at 100 cc/hour 5. Type 2 Diabetes mellitus A1c 8.0 Patient is on home metformin 500 mg PID, Jardiance 25 mg and glimepiride 4 mg, pioglitazone 15 mg Maintain inpatient glucose levels between 140-180 Ordered medium dose sliding scale insulin 6. Hypertension: Held home medication losartan 50 mg daily in view of soft blood pressure 7. Deconditioning pull worker consulted Patient will benefit from rehab placement 8. COPD-not in acute exacerbation: CaroNemalcolm p.r.n. 9. Acute kidney injury- vasomotor nephropathy Creatinine 1.05 improving to 0.93, baseline creatinine 0.67, continue fluid resuscitation NS at 100 cc/hour Code Status: Limited DVT Prophylaxis: Heparin SQ Disposition: Continue medical management of IV levothyroxine Giles Crandall, PGY1 Internal Medicime [facility] Date of Service: Jan 10, 2025 Billing Provider: NATALY WHITFIELD MD, SHIVANI, RES Jan 10, 2025 18:55
[2025-01-11] VITALS (11 sets, daily range): BP systolic 118–156; BP diastolic 46–66; PULSE 42–95; RESP 14–23; TEMP 96.5–97.6; O2SAT 94–99
[2025-01-11 07:06] LABS: MEAN PLATELET VOLUME 7.9 FL (7.4-10.4); RED CELL DISTRIBUTION WIDTH 16.6 % (11.5-14.5)
[2025-01-11 07:48] LABS: CREATININE 0.88 MG/DL (0.40-0.90); TOTAL CARBON DIOXIDE 19.4 MMOL/L (24-32); eCRCL 46 ML/MIN; eGFR 63 ML/MIN
[2025-01-11] MEDS: LEVOTHYROXINE SODIUM 100 MCG/5 ML injection IV SCH (08:00)
[2025-01-11] MEDS ORDERED: ondansetron 4mg rapidly disintigrating tab PO PRN (18:45)
--- NOTE | 2025-01-11 18:58 | PROGRESS NOTE- Residence ---
Progress Note - Resident Providers to CC Resident Creating Document: GILES GAONA, RES ~ Central Line/PICC still needed: N\A Antibiotic Timeout Antibiotic Ordered?: No Subjective Patient was examined bedside. She was alert, oriented x4. However she appeared to have slow speech without any slurring. She seemed to have macroglossia, no fasciculations no deviations. Objective Vital Signs Date Time Temp Pulse Resp B/P (MAP) Pulse Ox O2 Delivery O2 Flow Rate FiO2 01/11/25 15:00 97.5 93 16 156/56 (89) 99 Room Air 01/11/25 00:02 0.0 01/10/25 23:50 21 Result Diagram: 01/11/25 0643 01/11/25 0643 General: Slow, lethargic, well oriented, not confused, not agitated, not in acute distress, well cooperated during the physical. HEENT: Conjunctive are pink, sclerae clear, no icterus, pupil is equal in both sides, reactive to light, no ear discharge, no pharyngeal erythema or an edema. Neck: Supple, no JVD, no lymphadenopathy and thyromegaly. Chest: Equal air entry on both lungs, no added sounds, no wheeze. Cardiovascular: S1-S2 regular sinus rhythm and, regular rate, no gallops, no rubs, no murmurs Abdomen: No visible peristalsis, Bowel sounds present on auscultation, soft, nontender, no guarding, no rigidity Extremities: No rigidity, no resting tremors, tremors in right feet. no pitting edema bilaterally, capillary refill intact, peripheral pulsations are intact on both sides Central Nervous System: No focal neurological deficits, no motor or sensory weakness in all 4 extremities, could move all 4 extremities, 2+ deep tendon reflexes, negative Babinski. Musculoskeletal: No joint swelling, deformities, inflammations, and no scoliosis and back tenderness Skin: Warm and dry. Plan Plan Assessment: This is a 74-year-old female with past medical history of Parkinson's, hypothyroidism inconsistent with the medication who came in after a fall last night after care provider suggested so. She is currently being treated for overt hypothyroidism. 1. New onset muffled speech most likely due macroglossia secondary to hypothyroidism CVA ruled out Other signs of hypothyroidism including fatigue, generalized slowing present, course skin, puffiness of the face present Macroglossia without deviation, fasciculation present. TSH 37, free T4 0.35 Started on levothyroxine 50 mcg IV daily after 250 mcg IV loading dose. Patient can be transitioned to oral medication since she passed her swallow test levothyroxine 175 mcg p.o. daily. 2. 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 Continue home medication carbidopa/levodopa 25/100 mg Primidone 250 mg p.o. daily 3. Isotonic Hyponatremia: Resolved Continue NS at 100 cc/hour 4. Type 2 Diabetes mellitus A1c 8.0 Continued home metformin 500 mg PID, Jardiance 25 mg and glimepiride 4 mg, pioglitazone 15 mg Elevated LDL, most likely due to hypothyroidism, continue home medication rosuvastatin 40 mg p.o. daily 5. Hypertension: Continued home medication losartan 50 mg daily 6. Deconditioning turn out worker consulted Patient will benefit from rehab placement 7. COPD-not in acute exacerbation: DuoNeb p.r.n. 8. Prerenal Acute kidney injury-resolved continue fluid resuscitation NS at 100 cc/hour Code Status: Limited DVT Prophylaxis: Heparin SQ Disposition: Continue medical management of IV levothyroxine Giles Crandall, PGY1 Internal Medicime [facility] Date of Service: Jan 11, 2025 Billing Provider: NATALY WHITFIELD MD Common Visit Codes: [id number] INP/OBS CARE(HIGH) GILES GAONA, RES Jan 11, 2025 18:58 NATALY WHITFIELD MD Jan 12, 2025 07:00
[2025-01-11] MEDS: GADOTERATE MEGLUMINE 7.5 MMOL/15 ML VIAL IV ONE (19:44)
[2025-01-11] MEDS: carbidoba-levodopa 25-100mg tablet PO SCH (20:51)
[2025-01-11] MEDS: venlafaxine XR 37.5mg cap (Q24H) PO SCH (20:52)
[2025-01-12] VITALS (12 sets, daily range): BP systolic 128–140; BP diastolic 51–70; PULSE 77–97; RESP 14–22; TEMP 97.2–98.1; O2SAT 93–98
[2025-01-12] MEDS: PERFLUTREN PROTEIN-A MICROSPHR (Optison) 0.22 MG/ML 3ML VIAL IV ONE (02:39)
[2025-01-12 07:11] LABS: MEAN PLATELET VOLUME 8.4 FL (7.4-10.4); RED CELL DISTRIBUTION WIDTH 16.3 % (11.5-14.5)
[2025-01-12 07:50] LABS: CREATININE 0.89 MG/DL (0.40-0.90); TOTAL CARBON DIOXIDE 20.9 MMOL/L (24-32); eCRCL 45 ML/MIN; eGFR 62 ML/MIN
[2025-01-12] MEDS ORDERED: non-formulary drug (Rosuvastatin Calcium 1 TAB) PO SCH (08:00)
[2025-01-12] MEDS: cyanocobalamin 500mcg tablet PO SCH (08:29)
[2025-01-12] MEDS: EMPAGLIFLOZIN 25 MG TABLET PO SCH (08:29)
[2025-01-12] MEDS: levoTHYROXINE 175mcg tablet PO SCH (08:29)
[2025-01-12] MEDS: magnesium hydroxide 30ml (MOM) UD suspension PO PRN (09:58)
[2025-01-12] MEDS: INSULIN LISPRO 100 UNIT/ML INSULN.PEN MULTI-DOSE SQ SCH (12:30)
--- NOTE | 2025-01-12 17:37 | PROGRESS NOTE- Residence ---
Progress Note - Resident Providers to CC Resident Creating Document: GILES GAONA, RES ~ Central Line/PICC still needed: N\A Caraballo-Non Protocol Caraballo Indications Met/Not Met: F/C Indications Not Met Antibiotic Timeout Antibiotic Ordered?: No Subjective Patient was examined bedside. She was alert, oriented x4. However she appeared to have slow speech without any slurring. She seemed to have macroglossia, no fasciculations no deviations. The patient seems better than yesterday. No acute symptoms overnight. Objective Vital Signs Date Time Temp Pulse Resp B/P (MAP) Pulse Ox O2 Delivery O2 Flow Rate FiO2 01/12/25 15:55 80 16 95 Room Air* 0 21 01/12/25 15:00 98.0 138/59 (85) Result Diagram: 01/12/2562301/12/25623 General: Slow, lethargic, well oriented, not confused, not agitated, not in acute distress, well cooperated during the physical. HEENT: Conjunctive are pink, sclerae clear, no icterus, pupil is equal in both sides, reactive to light, no ear discharge, no pharyngeal erythema or an edema. Neck: Supple, no JVD, no lymphadenopathy and thyromegaly. Chest: Equal air entry on both lungs, no added sounds, no wheeze. Cardiovascular: S1-S2 regular sinus rhythm and, regular rate, no gallops, no rubs, no murmurs Abdomen: No visible peristalsis, Bowel sounds present on auscultation, soft, nontender, no guarding, no rigidity Extremities: Mild rigidity, resting tremors present in right feet, mild resting tremors present in hand. Intentional tremors observed while doing activity. no pitting edema bilaterally, capillary refill intact, peripheral pulsations are intact on both sides Central Nervous System: No focal neurological deficits, no motor or sensory weakness in all 4 extremities, could move all 4 extremities, 2+ deep tendon reflexes, negative Babinski, resting and intentional tremors present. Musculoskeletal: No joint swelling, deformities, inflammations, and no scoliosis and back tenderness Skin: Seborrheic dermatitis on face Warm and dry. Counseling Services Smoking & Tobacco Cessation: N/A Plan Plan Assessment: This is a 74-year-old female with past medical history of Parkinson's, hypothyroidism inconsistent with the medication who came in after a fall last night after care provider suggested so. She is currently being treated for overt hypothyroidism. 1. New onset muffled speech most likely due macroglossia secondary to hypothyroidism CVA ruled out Other signs of hypothyroidism including fatigue, generalized slowing present, course skin, puffiness of the face present Macroglossia without deviation, fasciculation present. TSH 37, free T4 0.35 Started on levothyroxine 50 mcg IV daily after 250 mcg IV loading dose. Transitioned to oral medication since she passed her swallow test levothyroxine 175 mcg p.o. daily. 2. 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 Continue home medication carbidopa/levodopa 25/100 mg Primidone 250 mg p.o. daily 3. Isotonic Hyponatremia: Resolved Continue NS at 100 cc/hour 4. Type 2 Diabetes mellitus A1c 8.0 Patient currently on moderate hyperglycemia protocol. Elevated LDL, most likely due to hypothyroidism, continue home medication rosuvastatin 40 mg p.o. daily 5. Hypertension: Continued home medication losartan 50 mg daily 6. Deconditioning general utility worker consulted 7. COPD-not in acute exacerbation: DuoNeb p.r.n. 8. Prerenal Acute kidney injury-resolved continue fluid resuscitation NS at 100 cc/hour Code Status: Limited Diet: Full liquid DVT Prophylaxis: Heparin SQ Disposition: Continue medical management of IV levothyroxine Giles Crandall, PGY1 Internal Medicime [facility] Date of Service: Jan 12, 2025 Billing Provider: NATALY WHITFIELD MD Common Visit Codes: [id number] INP/OBS CARE(HIGH) GILES GAONA, RES Jan 12, 2025 17:37 NATALY WHITFIELD MD Jan 13, 2025 06:48
[2025-01-12] MEDS ORDERED: ipratropium/albuterol 3ml nebule NEB PRN (18:35)
[2025-01-13] VITALS (7 sets, daily range): BP systolic 120–138; BP diastolic 54–63; PULSE 71–91; RESP 16–19; TEMP 97.1–98.2; O2SAT 94–98
[2025-01-13 06:50] LABS: MEAN PLATELET VOLUME 7.8 FL (7.4-10.4); RED CELL DISTRIBUTION WIDTH 16.3 % (11.5-14.5)
[2025-01-13 07:10] LABS: CREATININE 0.61 MG/DL (0.40-0.90); TOTAL CARBON DIOXIDE 24.6 MMOL/L (24-32); eCRCL 66 ML/MIN; eGFR > 90 ML/MIN
--- NOTE | 2025-01-13 19:00 | PROGRESS NOTE- Residence ---
Progress Note - Resident Providers to CC Resident Creating Document: KEN L[address] RES ~ Antibiotic Timeout Antibiotic Ordered?: No Subjective Was seen and examined at the bedside today. Patient is doing well and which improved. Patient has been accepted by [facility] and we will be going there tomorrow Objective Vital Signs Date Time Temp Pulse Resp B/P (MAP) Pulse Ox O2 Delivery O2 Flow Rate FiO2 01/13/25 13:22 Room Air 01/13/25 11:13 97.4 84 17 135/56 (82) 97 01/12/25 19:52 0 21 Result Diagram: 01/13/2561301/13/25613 General: Slow, lethargic, well oriented, not confused, not agitated, not in acute distress, well cooperated during the physical. HEENT: Conjunctive are pink, sclerae clear, no icterus, pupil is equal in both sides, reactive to light, no ear discharge, no pharyngeal erythema or an edema. Neck: Supple, no JVD, no lymphadenopathy and thyromegaly. Chest: Equal air entry on both lungs, no added sounds, no wheeze. Cardiovascular: S1-S2 regular sinus rhythm and, regular rate, no gallops, no rubs, no murmurs Abdomen: No visible peristalsis, Bowel sounds present on auscultation, soft, nontender, no guarding, no rigidity Extremities: Mild rigidity, resting tremors present in right feet, mild resting tremors present in hand. Intentional tremors observed while doing activity. no pitting edema bilaterally, capillary refill intact, peripheral pulsations are intact on both sides Central Nervous System: No focal neurological deficits, no motor or sensory weakness in all 4 extremities, could move all 4 extremities, 2+ deep tendon reflexes, negative Babinski, resting and intentional tremors present. Musculoskeletal: No joint swelling, deformities, inflammations, and no scoliosis and back tenderness Skin: Seborrheic dermatitis on face Warm and dry. Plan Plan Assessment: This is a 74-year-old female with past medical history of Parkinson's, hypothyroidism inconsistent with the medication who came in after a fall last night after care provider suggested so. She is currently being treated for overt hypothyroidism. Myxedema vs Overt Hypothyroidism New onset muffled speech most likely due macroglossia secondary to hypothyroidism CVA ruled out Other signs of hypothyroidism including fatigue, generalized slowing present, course skin, puffiness of the face present Macroglossia without deviation TSH 37, free T4 0.35 Started on levothyroxine 50 mcg IV daily after 250 mcg IV loading dose. Transitioned to oral medication since she passed her swallow test levothyroxine 175 mcg p.o. daily. 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 Continue home medication carbidopa/levodopa 25/100 mg Primidone 250 mg p.o. daily 3. Isotonic Hyponatremia: Resolved Likely secondary to hypothyroidism 4. Type 2 Diabetes mellitus A1c 8.0 Hyperlipidemia Patient currently on moderate hyperglycemia protocol. Elevated LDL, most likely due to hypothyroidism, continue home medication rosuvastatin 40 mg p.o. daily 5. Hypertension: Continued home medication losartan 50 mg daily 6. Deconditioning experimental worker consulted 7. COPD-not in acute exacerbation: DuoNeb p.r.n. 8. Prerenal Acute kidney injury-resolved continue fluid resuscitation NS at 100 cc/hour Code Status: Limited Diet: Full liquid DVT Prophylaxis: Heparin SQ Disposition: Discharge to [facility] is tomorrow [address] M.D PGY2 Date of Service: Jan 13, 2025 Billing Provider: NATALY WHITFIELD MD Common Visit Codes: [id number] INP/OBS CARE(HIGH) [address], RES Jan 13, 2025 19:00 NATALY WHITFIELD MD Jan 14, 2025 08:50
[2025-01-14] VITALS (7 sets, daily range): BP systolic 125–144; BP diastolic 59–69; PULSE 80–90; RESP 15–20; TEMP 97.8–99.1; O2SAT 96–98
[2025-01-14 06:42] LABS: MEAN PLATELET VOLUME 8.4 FL (7.4-10.4); RED CELL DISTRIBUTION WIDTH 16.3 % (11.5-14.5)
[2025-01-14 07:15] LABS: CREATININE 0.68 MG/DL (0.40-0.90); TOTAL CARBON DIOXIDE 25.9 MMOL/L (24-32); eCRCL 59 ML/MIN; eGFR 85 ML/MIN
--- NOTE | 2025-01-14 17:06 | PROGRESS NOTE- Residence ---
Progress Note - Resident Providers to CC Resident Creating Document: GILES PAPPAS, DAWNA ~ Central Line/PICC still needed: N\A Caraballo-Non Protocol Caraballo Indications Met/Not Met: F/C Indications Not Met Antibiotic Timeout Antibiotic Ordered?: No Subjective Was seen and examined at the bedside today. Patient is doing well, no acute symptoms overnight. Patient has been accepted by [facility] , awaiting authorization. Objective Vital Signs Date Time Temp Pulse Resp B/P (MAP) Pulse Ox O2 Delivery O2 Flow Rate FiO2 01/14/25 10:45 20 98 Room Air 0.0 21 01/14/25 10:00 97.9 80 144/63 (90) Result Diagram: 01/14/25 0557 01/14/25 0557 General: Slow, lethargic, well oriented, not confused, not agitated, not in acute distress, well cooperated during the physical. HEENT: Conjunctive are pink, sclerae clear, no icterus, pupil is equal in both sides, reactive to light, no ear discharge, no pharyngeal erythema or an edema. Neck: Supple, no JVD, no lymphadenopathy and thyromegaly. Chest: Equal air entry on both lungs, no added sounds, no wheeze. Cardiovascular: S1-S2 regular sinus rhythm and, regular rate, no gallops, no rubs, no murmurs Abdomen: No visible peristalsis, Bowel sounds present on auscultation, soft, nontender, no guarding, no rigidity Extremities: Mild rigidity, resting tremors present in right feet, mild resting tremors present in hand. Intentional tremors observed while doing activity. no pitting edema bilaterally, capillary refill intact, peripheral pulsations are intact on both sides Central Nervous System: No focal neurological deficits, no motor or sensory weakness in all 4 extremities, could move all 4 extremities, 2+ deep tendon reflexes, negative Babinski, resting and intentional tremors present. Musculoskeletal: No joint swelling, deformities, inflammations, and no scoliosis and back tenderness Skin: Seborrheic dermatitis on face Warm and dry. Counseling Services Smoking & Tobacco Cessation: N/A Advance Care Planning Advanced Care planning: N/A Plan Plan Assessment: This is a 74-year-old female with past medical history of Parkinson's, hypothyroidism inconsistent with the medication who came in after a fall last night after care provider suggested so. She is currently being treated for overt hypothyroidism. Myxedema vs Overt Hypothyroidism New onset muffled speech most likely due macroglossia secondary to hypothyroidism CVA ruled out Other signs of hypothyroidism including fatigue, generalized slowing present, course skin, puffiness of the face present Macroglossia without deviation or fasciculation TSH 37, free T4 0.35 Continue levothyroxine 175 mcg p.o. daily. 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 Continue home medication carbidopa/levodopa 25/100 mg Primidone 250 mg p.o. daily 3. Isotonic Hyponatremia: Resolved Likely secondary to hypothyroidism 4. Type 2 Diabetes mellitus A1c 8.0 Hyperlipidemia Patient currently on moderate hyperglycemia protocol. Elevated LDL, most likely due to hypothyroidism, continue home medication rosuvastatin 40 mg p.o. daily 5. Hypertension: Continued home medication losartan 50 mg daily 6. Deconditioning workers' compensation hearings officer consulted 7. COPD-not in acute exacerbation: DuoNemalcolm p.r.n. 8. Prerenal Acute kidney injury-resolved Code Status: Limited Diet: Full liquid DVT Prophylaxis: Heparin SQ Disposition: Discharge to [facility], awaiting authorization Giles Pappas MD PGY1, Internal Medicine [facility] Date of Service: Jan 14, 2025 Billing Provider: NATALY WHITFIELD MD Common Visit Codes: [id number] INP/OBS CARE(HIGH) GILES PAPPAS, RES Jan 14, 2025 17:06 NATALY WHITFIELD MD Jan 15, 2025 08:31
[2025-01-15] VITALS (8 sets, daily range): BP systolic 103–133; BP diastolic 45–66; PULSE 77–92; RESP 16–19; TEMP 97.4–98.2; O2SAT 95–100
[2025-01-15 08:25] LABS: MEAN PLATELET VOLUME 7.9 FL (7.4-10.4); RED CELL DISTRIBUTION WIDTH 16.4 % (11.5-14.5)
[2025-01-15 08:59] LABS: CREATININE 0.75 MG/DL (0.40-0.90); TOTAL CARBON DIOXIDE 26.2 MMOL/L (24-32)
[2025-01-15 09:00] LABS: eCRCL 54 ML/MIN; eGFR 76 ML/MIN
[2025-01-15] MEDS: bisacodyl 10mg suppository rectal RC STA (11:04)
--- NOTE | 2025-01-15 18:13 | PROGRESS NOTE- Residence ---
Progress Note - Resident Providers to CC Resident Creating Document: GILES PAPPAS, DAWNA ~ Caraballo-Non Protocol Caraballo Indications Met/Not Met: F/C Indications Not Met Antibiotic Timeout Antibiotic Ordered?: No Subjective Was seen and examined at the bedside today. Patient is doing well, no acute symptoms overnight. Patient has been accepted by [facility] , awaiting authorization. Complaining of constipation, Colace, milk of magnesium, suppository has not help with the constipation. Ordered enema. Objective Vital Signs Date Time Temp Pulse Resp B/P (MAP) Pulse Ox O2 Delivery O2 Flow Rate FiO2 01/15/25 15:59 97.5 85 18 118/66 (83) 97 Nasal Cannula 1.0 01/15/25 09:43 21 Result Diagram: 01/15/25 0759 01/15/25 0759 General: Slow, lethargic, well oriented, not confused, not agitated, not in acute distress, well cooperated during the physical. HEENT: Conjunctive are pink, sclerae clear, no icterus, pupil is equal in both sides, reactive to light, no ear discharge, no pharyngeal erythema or an edema. Neck: Supple, no JVD, no lymphadenopathy and thyromegaly. Chest: Equal air entry on both lungs, no added sounds, no wheeze. Cardiovascular: S1-S2 regular sinus rhythm and, regular rate, no gallops, no rubs, no murmurs Abdomen: No visible peristalsis, Bowel sounds present on auscultation, soft, nontender, no guarding, no rigidity Extremities: Mild rigidity, resting tremors present in right feet, mild resting tremors present in hand. Intentional tremors observed while doing activity. no pitting edema bilaterally, capillary refill intact, peripheral pulsations are intact on both sides Central Nervous System: No focal neurological deficits, no motor or sensory weakness in all 4 extremities, could move all 4 extremities, 2+ deep tendon reflexes, negative Babinski, resting and intentional tremors present. Musculoskeletal: No joint swelling, deformities, inflammations, and no scoliosis and back tenderness Skin: Seborrheic dermatitis on face Warm and dry. Plan Plan Assessment: This is a 74-year-old female with past medical history of Parkinson's, hypothyroidism inconsistent with the medication who came in after a fall last night after care provider suggested so. She is currently being treated for overt hypothyroidism. Myxedema vs Overt Hypothyroidism New onset muffled speech most likely due macroglossia secondary to hypothyroidism CVA ruled out Other signs of hypothyroidism including fatigue, generalized slowing present, course skin, puffiness of the face present Macroglossia without deviation or fasciculation TSH 37, free T4 0.35 Continue levothyroxine 175 mcg p.o. daily. 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 daily 3. Isotonic Hyponatremia: Resolved Likely secondary to hypothyroidism 4. Type 2 Diabetes mellitus A1c 8.0 Hyperlipidemia Patient currently on moderate hyperglycemia protocol. Elevated LDL, most likely due to hypothyroidism, continue home medication rosuvastatin 40 mg p.o. daily 5. Hypertension: Continued home medication losartan 50 mg daily 6. Deconditioning farmworker general consulted 7. COPD-not in acute exacerbation: DuoNeb p.r.n. 8. Prerenal Acute kidney injury-resolved Code Status: Limited Diet: Full liquid DVT Prophylaxis: Heparin SQ Disposition: Discharge to [facility], awaiting authorization Giles Pappas MD PGY1, Internal Medicine [facility] Date of Service: Jan 15, 2025 Billing Provider: NATALY WHITFIELD MD Common Visit Codes: [id number] INP/OBS CARE(HIGH) GILES PAPPAS, RES Jan 15, 2025 18:13 NATALY WHITFIELD MD Jan 16, 2025 07:14
[2025-01-16] VITALS (7 sets, daily range): BP systolic 109–134; BP diastolic 50–74; PULSE 85–98; RESP 15–20; TEMP 97.5–98.1; O2SAT 96–99
[2025-01-16 16:38] LABS: MEAN PLATELET VOLUME 7.9 FL (7.4-10.4); RED CELL DISTRIBUTION WIDTH 16.2 % (11.5-14.5)
--- NOTE | 2025-01-16 16:48 | PROGRESS NOTE- Residence ---
Progress Note - Resident Providers to CC Resident Creating Document: GILES PAPPAS RES ~ Caraballo-Non Protocol Caraballo Indications Met/Not Met: F/C Indications Not Met Antibiotic Timeout Antibiotic Ordered?: No Subjective Was seen and examined at the bedside today. Patient is doing well, no acute symptoms overnight. Patient has been accepted by , awaiting authorization. She had 1 bowel movement yesterday with enema. Refuses Colace and milk of magnesium. Objective Vital Signs Date Time Temp Pulse Resp B/P (MAP) Pulse Ox O2 Delivery O2 Flow Rate FiO2 01/16/25 10:00 97.5 98 15 134/74 (94) 97 Room Air 01/15/25 19:36 0 21 Result Diagram: 01/15/25 0759 01/15/25 0759 General: Slow, lethargic, well oriented, not confused, not agitated, not in acute distress, well cooperated during the physical. HEENT: Conjunctive are pink, sclerae clear, no icterus, pupil is equal in both sides, reactive to light, no ear discharge, no pharyngeal erythema or an edema. Neck: Supple, no JVD, no lymphadenopathy and thyromegaly. Chest: Equal air entry on both lungs, no added sounds, no wheeze. Cardiovascular: S1-S2 regular sinus rhythm and, regular rate, no gallops, no rubs, no murmurs Abdomen: No visible peristalsis, Bowel sounds present on auscultation, soft, nontender, no guarding, no rigidity Extremities: Mild rigidity, resting tremors present in right feet, mild resting tremors present in hand. Intentional tremors observed while doing activity. no pitting edema bilaterally, capillary refill intact, peripheral pulsations are intact on both sides Central Nervous System: No focal neurological deficits, no motor or sensory weakness in all 4 extremities, could move all 4 extremities, 2+ deep tendon reflexes, negative Babinski, resting and intentional tremors present. Musculoskeletal: No joint swelling, deformities, inflammations, and no scoliosis and back tenderness Skin: Seborrheic dermatitis on face Warm and dry. Plan Plan Assessment: This is a 74-year-old female with past medical history of Parkinson's, hypothyroidism inconsistent with the medication who came in after a fall. She is currently being treated for overt hypothyroidism. Myxedema vs Overt Hypothyroidism New onset muffled speech most likely due macroglossia secondary to hypothyroidism CVA ruled out Other signs of hypothyroidism including fatigue, generalized slowing present, course skin, puffiness of the face present Macroglossia without deviation or fasciculation TSH 37, free T4 0.35 Continue levothyroxine 175 mcg p.o. daily. 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 daily 3. Isotonic Hyponatremia: Resolved Likely secondary to hypothyroidism 4. Type 2 Diabetes mellitus A1c 8.0 Hyperlipidemia Patient currently on moderate hyperglycemia protocol. Elevated LDL, most likely due to hypothyroidism, continue home medication rosuvastatin 40 mg p.o. daily 5. Hypertension: Continued home medication losartan 50 mg daily 6. Deconditioning boat worker consulted 7. COPD-not in acute exacerbation: DuoNeb p.r.n. 8. Prerenal Acute kidney injury-resolved Code Status: Limited Diet: Full liquid DVT Prophylaxis: Heparin SQ Disposition: Discharge to [facility], awaiting authorization Giles aPppas MD PGY1, Internal Medicine [facility] Date of Service: Jan 16, 2025 Billing Provider: NATALY WHITFIELD MD Common Visit Codes: [id number] INP/OBS CARE(HIGH) GILES PAPPAS, RES Jan 16, 2025 16:48 NATALY WHITFIELD MD Jan 17, 2025 07:55
[2025-01-16 16:54] LABS: CREATININE 0.85 MG/DL (0.40-0.90); TOTAL CARBON DIOXIDE 26.5 MMOL/L (24-32); eCRCL 47 ML/MIN; eGFR 66 ML/MIN
[2025-01-16 17:18] LABS: BANDS% (MANUAL) 1.0 % (0-10); EOSINOPHILS % (MANUAL) 4.0 % (0-6); LYMPHOCYTES % (MANUAL) 20.0 % (21-51); MONOCYTES % (MANUAL) 4.0 % (2-12); NEUTROPHILS % (MANUAL) 71.0 % (42-75); PLATELET ESTIMATE NORMAL
[2025-01-17 06:00] VITALS: BP 141/55; PULSE 83; RESP 20; TEMP 97.9; O2SAT 97
[2025-01-17 08:55] LABS: MEAN PLATELET VOLUME 8.0 FL (7.4-10.4); RED CELL DISTRIBUTION WIDTH 16.7 % (11.5-14.5)
[2025-01-17 08:56] VITALS: RESP 16; O2SAT 97
[2025-01-17 09:01] LABS: CREATININE 0.73 MG/DL (0.40-0.90); TOTAL CARBON DIOXIDE 27.5 MMOL/L (24-32); eCRCL 55 ML/MIN; eGFR 78 ML/MIN
[2025-01-17 09:24] VITALS: PULSE 86; RESP 16; O2SAT 92
[2025-01-17 10:00] VITALS: BP 106/44; PULSE 88; RESP 20; TEMP 97.5; O2SAT 96
[2025-01-17] MEDS: bisacodyl 10mg suppository rectal RC STA (11:39)
--- NOTE | 2025-01-17 12:33 | RADIOLOGY REPORT ---
Date: 01/17/2025 11:25 AM Examination: DI ABDOMEN,SINGLE VIEW(KUB) History: abdominal distention COMPARISON: None TECHNIQUE: Frontal views of the abdomen was obtained. FINDINGS: Dilated loops of small bowel measuring up to 4 cm. The lung bases are unremarkable. No acute osseous abnormality identified. IMPRESSION: Dilated loops of small bowel measuring up to 4 cm. Findings could represent small bowel obstruction Moderate bilateral hip osteoarthritis
--- NOTE | 2025-01-17 17:34 | DISCHARGE SUMMARY-Residence ---
Discharge Summary Providers to CC Resident Creating Document: YAJAIRACHALINODIANAGILES, RES ~ Discharge Summary Admission Diagnosis: ENCEPHALOPATHY Hospital Course DATE OF ADMISSION: 01/09/2025 DATE OF DISCHARGE: 01/16/2025 Discharge Diagnosis\Comment: Hypothyroidism-Myxedema Parkinson's disease Recurrent falls Seborrheic dermatitis Isotonic hyponatremia-resolved Type 2 diabetes mellitus Hyperlipidemia Hypertension Deconditioning COPD not in acute exacerbation Prerenal AJAY-resolved Operations\Procedures: None Consultants: None Complications: None Condition on DC: Stable for transfer Continued Medications: Albuterol Sulfate (Proair Hfa) 1 Puff Inh 1-2 PUFF INH Q4H PRN for SOB or wheezing Carbidopa/Levodopa (Carbidopa-Levodopa 25-100 Tab) 25 Mg-100 Mg Tablet 2 TAB PO TID Cyanocobalamin (Vitamin B-12) (Vitamin B-12) 1,000 Mcg Capsule 1 CAP PO DAILY for 30 Days, #30 CAP 0 Refills Empagliflozin (Jardiance) 25 Mg Tablet 1 TAB PO DAILY, TAB 0 Refills Glimepiride* (Amaryl*) 1 Mg Tablet 6 MG PO DAILY, TAB Levothyroxine* (Synthroid*) 175 Mcg Tab 1 TAB PO DAILY for 30 Days, #30 TAB 0 Refills Losartan Potassium (Losartan Potassium) 50 Mg Tablet 1 TAB PO QAM Metformin HCl (Metformin HCl ER) 500 Mg Tab.er.24 1000 MG PO DAILY for 30 Days, #30 TAB 0 Refills Ondansetron HCl (Ondansetron HCl) 4 Mg Tablet 1 TAB PO Q6H PRN for nausea/vomiting Pioglitazone Hcl* (Actos*) 15 Mg Tablet 1 TAB PO DAILY, TAB Primidone (MYSOLINE tablet) 250 Mg Tablet 3 TAB PO QAM for 30 Days, #60 TAB 0 Refills Rosuvastatin Calcium (Rosuvastatin Calcium) 40 Mg Tablet 1 TAB PO DAILY for high cholesterol, TAB 0 Refills Venlafaxine Hcl XR* (Effexor XR*) 37.5 Mg Cap.sr.12h 1 CAP PO DAILY for 30 Days, #30 CAP Discharge Summary: History of present illness: 74-year-old female was brought in after a mechanical fall at home. She reported tripping over a walker and striking her head and cheek. She has a history of multiple prior falls; she was admitted here in April for severe generalized weakness and a mechanical fall with a reported episode of loss of consciousness. The caregiver reports progressive weakness over the last 3 months with legs giving way. She lives alone at home but was brought by her caregiver because of marked weakness. She [place] with [place] care [place] [facility] [place] [facility] [place] and saw a neurologist a few weeks ago. Hospital course: Head trauma was ruled out with head CT. On admission the patient was found to have extreme weakness, psychomotor slowing, generalized edema and macroglossia. Neurology cause including stroke was ruled out with head MRI and carotid ultrasound. She was also found to have hyponatremia, constipation. Lab work revealed TSH to be 37 and free T4 to be 0.35. She was started on IV levothyroxine 250 mg daily and transition to home medication 175 mcg daily after she passed a swallow eval. She continued to improve to her baseline with levothyroxine. And she continued to improve, her muscle tone increased revealing Parkinson's symptoms of rigidity and resting tremors in the extremity. We started her home medication for her comorbidities. She was treated with Colace, milk of magnesia, suppository and finally enema for her constipation. She is hemodynamically stable and symptomatically better and hence being discharged with the following instructions. Vital Signs Date Time Temp Pulse Resp B/P (MAP) Pulse Ox O2 Delivery O2 Flow Rate FiO2 01/17/25 10:00 97.5 88 20 106/44 (64) 96 Room Air 01/17/25 09:24 0 21 Laboratory Tests Test 01/15/25 21:23 01/16/25 07:19 01/16/25 11:37 01/16/25 16:28 Glucometer 174 mg/dl 145 mg/dl 208 mg/dl White Blood Count 7.3 X10'3 Red Blood Count 3.81 X10'6 Hemoglobin 11.9 g/dl Hematocrit 34.2 % Mean Corpuscular Volume 89.9 FL Mean Corpuscular Hemoglobin 31.2 PG Mean Corpuscular Hemoglobin Concent 34.7 g/dL Red Cell Distribution Width 16.2 % Platelet Count 304 X10'3 Mean Platelet Volume 7.9 FL Neutrophils (%) (Auto) % Lymphocytes (%) (Auto) % Monocytes (%) (Auto) % Eosinophils (%) (Auto) % Basophils (%) (Auto) % Neutrophils # (Auto) X10'3 Lymphocytes # (Auto) X10'3 Monocytes # (Auto) X10'3 Eosinophils # (Auto) X10'3 Basophils # (Auto) X10'3 CBC Comment Differential Total Cells Counted 100 Neutrophils % (Manual) 71.0 % Band Neutrophils % 1.0 % Lymphocytes % (Manual) 20.0 % Monocytes % (Manual) 4.0 % Eosinophils % (Manual) 4.0 % Platelet Estimate Normal Red Blood Cell Morphology Perf Basophilic Stippling Anisocytosis 1+ Sodium Level 133 MMOL/L Potassium Level 4.8 MMOL/L Chloride Level 101 MMOL/L Carbon Dioxide Level 26.5 MMOL/L Anion Gap 6 Blood Urea Nitrogen 14 MG/DL Creatinine 0.85 MG/DL Estimated GFR/1.73 m2 66 ML/MIN BUN/Creatinine Ratio 16.5 Glucose Level 185 MG/DL Calcium Level 7.7 MG/DL Total Bilirubin 0.1 MG/DL Aspartate Amino Transf (AST/SGOT) 24 U/L Alanine Aminotransferase (ALT/SGPT) < 6 U/L Alkaline Phosphatase 170 IU/L Total Protein 5.8 G/DL Albumin 2.2 G/DL Globulin 3.6 G/DL Albumin/Globulin Ratio 0.6 Chemistry Comments Test 01/16/25 17:00 01/16/25 20:59 01/17/25 07:06 01/17/25 08:31 Glucometer 168 mg/dl 139 mg/dl 141 mg/dl White Blood Count 6.6 X10'3 Red Blood Count 3.82 X10'6 Hemoglobin 11.8 g/dl Hematocrit 34.3 % Mean Corpuscular Volume 89.7 FL Mean Corpuscular Hemoglobin 30.9 PG Mean Corpuscular Hemoglobin Concent 34.5 g/dL Red Cell Distribution Width 16.7 % Platelet Count 302 X10'3 Mean Platelet Volume 8.0 FL Neutrophils (%) (Auto) 72.9 % Lymphocytes (%) (Auto) 16.8 % Monocytes (%) (Auto) 6.9 % Eosinophils (%) (Auto) 2.6 % Basophils (%) (Auto) 0.8 % Neutrophils # (Auto) 4.8 X10'3 Lymphocytes # (Auto) 1.1 X10'3 Monocytes # (Auto) 0.5 X10'3 Eosinophils # (Auto) 0.2 X10'3 Basophils # (Auto) 0.1 X10'3 CBC Comment Sodium Level 134 MMOL/L Potassium Level 4.0 MMOL/L Chloride Level 100 MMOL/L Carbon Dioxide Level 27.5 MMOL/L Anion Gap 7 Blood Urea Nitrogen 12 MG/DL Creatinine 0.73 MG/DL Estimated GFR/1.73 m2 78 ML/MIN BUN/Creatinine Ratio 16.4 Glucose Level 198 MG/DL Calcium Level 8.0 MG/DL Albumin 2.4 G/DL Chemistry Comments Test 01/17/25 12:05 Glucometer 212 mg/dl Imaging: Head CT: 1. 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 Hemorrhage cannot be entirely excluded in the setting of trauma. Comparison with any prior outside imaging would be helpful in assessing acuity and interval change. If no prior imaging is available, MRI is suggested for confirmation. 2. Age-related involutional changes. Chronic microvascular changes. Chest x-ray: No acute cardiopulmonary process Carotid ultrasound: Heterogeneous irregular plaque with calcification visualized at the carotid artery bifurcation extending into the proximal internal carotid arteries bilaterally, left greater than right. 50-69% stenosis visualized in the left internal carotid artery. Less than 50% stenosis visualized in the right internal carotid artery. Less than 50% stenosis visualized in the common carotid arteries bilaterally. Less than 50% stenosis visualized in the right external carotid artery, however, the right external carotid artery appears to be approaching a 50% stenosis. Greater than 50% stenosis visualized in the left external carotid artery. bilaterally. Antegrade flow visualized in the vertebral arteries bilaterally. Multiphasic waveforms noted in the subclavian arteries Echocardiogram: Hypovolemic LV size with hyperdynamic function. Mild concentric hypertrophy. Resting LV gradient of 40 mmHg, gradient does not increase with Valsalva maneuver. Velocity increase throughout may be due to hyperdynamic LV function, although difficult to evaluate due to poor acoustic images. Trileaflet AV appears mildly sclerotic without stenosis or insufficiency. Mild MV annular calcification without stenosis. Trace regurgitation. TV appears grossly normal with trace regurgitation. Normal pericardium. No effusion. . Facial bone x-ray: Hypovolemic LV size with hyperdynamic function. Mild concentric hypertrophy. Resting LV gradient of 40 mmHg, gradient does not increase with Valsalva maneuver. Velocity increase throughout may be due to hyperdynamic LV function, although difficult to evaluate due to poor acoustic images. Trileaflet AV appears mildly sclerotic without stenosis or insufficiency. Mild MV annular calcification without stenosis. Trace regurgitation. TV appears grossly normal with trace regurgitation. Normal pericardium. No effusion. Head MRI: No acute intracranial abnormality seen. Abdominal x-ray: Dilated loops of small bowel measuring up to 4 cm. Findings could represent small bowel obstruction Moderate bilateral hip osteoarthritis Physical exam on discharge: General: Slow, lethargic, well oriented, not confused, not agitated, not in acute distress, well cooperated during the physical. HEENT: Conjunctive are pink, sclerae clear, no icterus, pupil is equal in both sides, reactive to light, no ear discharge, no pharyngeal erythema or an edema. Neck: Supple, no JVD, no lymphadenopathy and thyromegaly. Chest: Equal air entry on both lungs, no added sounds, no wheeze. Cardiovascular: S1-S2 regular sinus rhythm and, regular rate, no gallops, no rubs, no murmurs Abdomen: No visible peristalsis, Bowel sounds present on auscultation, soft, nontender, no guarding, no rigidity Extremities: Mild rigidity, resting tremors present in right feet, mild resting tremors present in hand. Intentional tremors observed while doing activity. no pitting edema bilaterally, capillary refill intact, peripheral pulsations are intact on both sides Central Nervous System: No focal neurological deficits, no motor or sensory weakness in all 4 extremities, could move all 4 extremities, 2+ deep tendon reflexes, negative Babinski, resting and intentional tremors present. Musculoskeletal: No joint swelling, deformities, inflammations, and no scoliosis and back tenderness Skin: Seborrheic dermatitis on face Warm and dry. Discharge instructions: Take your medication regularly. Follow up with the primary care provider in 2 weeks. Visit ER immediately in case of any acute emergencies including falls, dizziness, extreme fatigue, syncope. *Problems/Diagnosis: (1) Hypothyroidism Status: Chronic (2) Parkinsons disease Status: Chronic (3) Fall Status: Acute (4) Aspiration pneumonia Status: Acute (5) Weakness Status: Acute (6) Myxedema Status: Acute Total Time Spent on D/C: > 30 Minutes Counseling Services Smoking & Tobacco Cessation: N/A Date of Service: Jan 17, 2025 Billing Provider: NATALY WHITFIELD MD Common Visit Codes: 36976-ZII/OBS DISCH DAY >30min GILES GAONA, RES Jan 17, 2025 17:17 NATALY WHITFIELD MD Jan 18, 2025 06:53
== END 2025-01-17 15:55 | DRG 643 ==
LOC: ER 17:01 → ED HOLD 22:24 → EDBEDREQ 23:59 → PCU 3S 01-10 03:35 → SUR 3N 01-13 11:25
PROVIDERS: ADMIT Internal Medicine Pulmonary Disease; ATTEND Internal Medicine
DX: E03.9 Hypothyroidism, unspecified (principal); G93.41 Metabolic encephalopathy; J69.0 Pneumonitis due to inhalation of food and vomit; N17.9 Acute kidney failure, unspecified; G20.A1 Parkinson's disease without dyskinesia, without mention of fluctuations; I50.9 Heart failure, unspecified; I11.0 Hypertensive heart disease with heart failure; E11.9 Type 2 diabetes mellitus without complications; J44.89 Other specified chronic obstructive pulmonary disease; F32.A Depression, unspecified; E87.1 Hypo-osmolality and hyponatremia; G90.89 Other disorders of autonomic nervous system; Z20.822 Contact with and (suspected) exposure to COVID-19; K14.8 Other diseases of tongue; L21.8 Other seborrheic dermatitis; E78.00 Pure hypercholesterolemia, unspecified; F41.9 Anxiety disorder, unspecified; I25.10 Atherosclerotic heart disease of native coronary artery without angina pectoris; I25.2 Old myocardial infarction; Z90.710 Acquired absence of both cervix and uterus; Z95.1 Presence of aortocoronary bypass graft; Z86.73 Personal history of transient ischemic attack (TIA), and cerebral infarction without residual deficits; Z83.3 Family history of diabetes mellitus
CPT/HCPCS: 36415; 70150; 70450; 70553; 71045; 74018; 80048; 80053; 80061; 81001; 82550; 82607; 82948; 83036; 83735; 83930; 83935; 84145; 84300; 84439; 84443; 85007; 85025; 87081; 87088; 87804; 87811; 92508; 92616; 93005; 93308; 93880; 94640; 94760; 97110; 97116; 97161; 97530; 99285; A4615; A6213; A6250; A7015; G0378; J1644; J1815; J3490; J7030